=== PATIENT | male | born 1965 | race Native Hawaiian/Other Pacific Islander ===

== ENCOUNTER 2017-12-29 08:02 | Emergency (ER) | payer BC ==
[2017-12-29] MEDS ORDERED: ZOFRAN IV ONE (08:25)
[2017-12-29] MEDS ORDERED: NACL 0.9% 1000 ML 1,000 ML IV ONE (08:25)
--- NOTE | 2017-12-29 08:26 | Emergency Department Report ---
ED Dizziness HPI - General Chief Complaint: Dizziness Stated Complaint: DIZZINESS Time Seen by Provider: 12/29/17 08:15 Source: patient, family Mode of arrival: Ambulatory Limitations: No Limitations - History of Present Illness Initial Comments: 52-year-old male that presents emergency with complaints of dizziness, nausea vomiting, blurry vision and diaphoresis. Patient states this all started approximately 2 hour prior to coming to the hospital. Patient states symptoms have improved but are still present. Patient states he only vomited times one and hasn't vomited since. Patient denies chest pain shortness of breath. Patient denies fever chills. Patient denies abdominal pain. MD Complaint: dizziness, lightheadedness -: Sudden Timing: sudden onset Description: sense of movement, "room spinning", lightheadedness History of Same: No History of Trauma: No Severity: severe Improves With: remaining still, rest Worsens With: movement, position Associated Symptoms: diaphoresis. denies: ataxia, chest pain, confusion, cough , fever/chills, loss of appetite, malaise, rash, seizure, shortness of breath, syncope, weakness - Related Data Previous Rx's Medication Instructions Recorded Last Taken Type Ciprofloxacin HCl [Ciprofloxacin 500 mg PO Q12H #20 tab 11/25/15 Unknown Rx TAB] Ondansetron [Zofran Odt] 4 mg PO Q4H #10 tab.rapdis 11/25/15 Unknown Rx metroNIDAZOLE [Flagyl] 500 mg PO Q8HR #30 tablet 11/25/15 Unknown Rx traMADol [Ultram] 50 mg PO Q6HR PRN #20 tablet 11/25/15 Unknown Rx Ondansetron [Zofran Odt] 4 mg PO Q8HR PRN #30 tab.rapdis 12/29/17 Unknown Rx hydroCHLOROthiazide [HCTZ] 12.5 mg PO QDAY #30 capsule 12/29/17 Unknown Rx Allergies Allergy/AdvReac Type Severity Reaction Status Date / Time No Known Allergies Allergy Verified 12/29/17 08:09 ED Review of Systems ROS: Stated complaint: DIZZINESS Other details as noted in HPI Constitutional: denies: chills, fever Eyes: denies: eye pain, eye discharge, vision change ENT: denies: ear pain, throat pain Respiratory: denies: cough, shortness of breath, wheezing Cardiovascular: denies: chest pain, palpitations Endocrine: no symptoms reported Gastrointestinal: nausea, vomiting. denies: abdominal pain, diarrhea Genitourinary: denies: urgency, dysuria Musculoskeletal: denies: back pain, joint swelling, arthralgia Skin: denies: rash, lesions Neurological: denies: headache, weakness, paresthesias Psychiatric: denies: anxiety, depression Hematological/Lymphatic: denies: easy bleeding, easy bruising ED Past Medical Hx - Past Medical History Previous Medical History?: No - Surgical History Past Surgical History?: No - Family History Family history: hypertension - Social History Smoking Status: Never Smoker Substance Use Type: Alcohol - Medications Home Medications: Home Medications Medication Instructions Recorded Confirmed Last Taken Type Ciprofloxacin HCl [Ciprofloxacin 500 mg PO Q12H #20 tab 11/25/15 Unknown Rx TAB] Ondansetron [Zofran Odt] 4 mg PO Q4H #10 tab.rapdis 11/25/15 Unknown Rx metroNIDAZOLE [Flagyl] 500 mg PO Q8HR #30 tablet 11/25/15 Unknown Rx traMADol [Ultram] 50 mg PO Q6HR PRN #20 tablet 11/25/15 Unknown Rx Ondansetron [Zofran Odt] 4 mg PO Q8HR PRN #30 tab.rapdis 12/29/17 Unknown Rx hydroCHLOROthiazide [HCTZ] 12.5 mg PO QDAY #30 capsule 12/29/17 Unknown Rx ED Physical Exam - General Limitations: No Limitations General appearance: alert, in no apparent distress - Head Head exam: Present: atraumatic, normocephalic - Eye Eye exam: Present: normal appearance - ENT ENT exam: Present: mucous membranes dry - Neck Neck exam: Present: normal inspection - Respiratory Respiratory exam: Present: normal lung sounds bilaterally. Absent: respiratory distress - Cardiovascular Cardiovascular Exam: Present: regular rate, normal rhythm. Absent: systolic murmur, diastolic murmur, rubs, gallop - GI/Abdominal GI/Abdominal exam: Present: soft, normal bowel sounds. Absent: distended, tenderness, guarding, rebound - Rectal Rectal exam: Present: deferred - Extremities Exam Extremities exam: Present: normal inspection - Back Exam Back exam: Present: normal inspection - Neurological Exam Neurological exam: Present: alert, oriented X3, CN II-XII intact, normal gait, reflexes normal. Absent: motor sensory deficit - Psychiatric Psychiatric exam: Present: normal affect, normal mood - Skin Skin exam: Present: warm, dry, intact, normal color. Absent: rash ED Course Vital Signs 12/29/17 12/29/17 12/29/17 08:05 08:22 08:30 Temperature 97.7 F Pulse Rate 73 65 Respiratory 16 24 Rate Blood Pressure 185/114 169/116 Blood Pressure [Left] O2 Sat by Pulse 98 98 98 Oximetry 12/29/17 12/29/17 12/29/17 08:40 08:45 08:46 Temperature Pulse Rate 65 75 Respiratory 18 18 26 H Rate Blood Pressure 175/109 Blood Pressure 169/116 [Left] O2 Sat by Pulse 97 97 97 Oximetry 12/29/17 12/29/17 12/29/17 09:12 09:16 09:30 Temperature Pulse Rate 88 65 63 Respiratory 17 13 25 H Rate Blood Pressure 155/110 155/110 164/107 Blood Pressure [Left] O2 Sat by Pulse 99 96 97 Oximetry 12/29/17 12/29/17 12/29/17 09:46 10:00 10:16 Temperature Pulse Rate 67 68 66 Respiratory 26 H 20 19 Rate Blood Pressure 164/107 155/110 155/110 Blood Pressure [Left] O2 Sat by Pulse 96 97 96 Oximetry 12/29/17 12/29/17 12/29/17 10:30 10:35 10:45 Temperature Pulse Rate 65 64 63 Respiratory 17 14 Rate Blood Pressure 158/104 158/104 158/104 Blood Pressure [Left] O2 Sat by Pulse 97 97 Oximetry 12/29/17 11:00 Temperature Pulse Rate 64 Respiratory 16 Rate Blood Pressure 158/104 Blood Pressure [Left] O2 Sat by Pulse 96 Oximetry - Reevaluation(s) Reevaluation #1: Patient is symptom-free at this time. Patient denies dizziness and headache and nausea and vomiting. The patient is a no time before. Completely normal limit neuro exam. However at this time patient's blood pressure is extremely high. Will give patient 2.5 mg of Norvasc a monitor 12/29/17 10:24 Norvasc held due to blood pressure improving. Gait is normal, patient able to ambulate without problem or dizziness or blurred vision. Patient states all symptoms have resolved. Patient states he feels good and is ready to go home. Discussed CT results with patient. Patient found to have sinusitis on CT however patient has no sinus tenderness or facial pain. Patient instructed to take Flonase OTC and follow-up with primary care 12/29/17 10:58 ED Medical Decision Making - Lab Data Result diagrams: 12/29/17 08:30 12/29/17 08:30 - EKG Data -: EKG Interpreted by Me EKG shows normal: sinus rhythm, axis, intervals, QRS complexes, ST-T waves Rate: normal - Radiology Data Radiology results: report reviewed CT head without contrast: Dizzy. Axial images obtained. These cerebral anatomy appears unremarkable. No focal or generalized abnormality. No evidence of hemorrhage. No extracerebral collection. The visualized bony structures are normal. A small degree of mucoperiosteal thickening identified in the left maxillary sinus. Impression: 1. Normal intracranial scan. 2. Minimal mucoperiosteal thickening of the left maxillary sinus. Transcribed By: LESLIE Dictated By: NELLY WU MD Electronically Authenticated By: NELLY WU MD Signed Date/Time: 12/29/17 0858 - Medical Decision Making Patient 52-year-old male that presents to emergency room with complaints of nausea vomiting, dizziness and blurry vision. Patient's had a normal workup. Patient's symptoms have resolved during ER stay. Patient is stable and ready for discharge. Patient's blood pressure high, will give patient hydrochlorothiazide and have patient follow up with his primary care. Patient' s nausea and vomiting likely secondary to a upper GI virus. - Differential Diagnosis gastroenteritis. Gastritis. Hypertension. Dizziness. Critical care attestation.: If time is entered above; I have spent that time in minutes in the direct care of this critically ill patient, excluding procedure time. ED Disposition Clinical Impression: Dizziness, Gastroenteritis Hypertension Qualifiers: Hypertension type: essential hypertension Qualified Code(s): I10 - Essential ( primary) hypertension Nausea & vomiting Qualifiers: Vomiting type: unspecified Vomiting Intractability: non-intractable Qualified Code(s): R11.2 - Nausea with vomiting, unspecified Disposition: DC-01 TO HOME OR SELFCARE Is pt being admited?: No Does the pt Need Aspirin: No Condition: Stable Instructions: Gastroenteritis (ED), Acute Nausea and Vomiting (ED), Hypertension (ED) Additional Instructions: Patient follow up with primary care in 3-5 days. Patient to return to ER if condition worsens. Patient to increase water. Patient stated a Brat diet. Patient to rest. Patient to monitor blood pressure at home. Prescriptions: hydroCHLOROthiazide [HCTZ] 12.5 mg PO QDAY #30 capsule Ondansetron [Zofran Odt] 4 mg PO Q8HR PRN #30 tab.rapdis PRN Reason: Nausea And Vomiting Referrals: PRIMARY CARE, [Primary Care Provider] - 3-5 Days Time of Disposition: 11:04 - Assessment Assessment Interval: Baseline - Level of Consciousness 1a. Level of Consciousness: alert - LOC Questions 1b. LOC Questions: answers correctly - LOC Command 1c. LOC Commands: performs tasks correctly - Best Gaze 2. Best Gaze: normal - Visual 3. Visual: no visual loss - Facial Palsy 4. Facial Palsy: normal symmetrical movement - Motor Arm 5b. Motor Arm Right: no drift 5a. Motor Arm Left: no drift - Motor Leg 6a. Motor Leg Left: no drift 6b. Motor Leg Right: no drift - Limb Ataxia 7. Limb Ataxia: absent - Sensory 8. Sensory: normal - Best Language 9. Best Language: no aphasia - Dysarthria 10. Dysarthria: normal - Extinction and Inattention 11. Extinction/Inattention: no abnormality - Scoring Total Score: 0 Stroke Severity: No Stroke Symptoms
[2017-12-29 08:42] LABS: Basophils # (Auto) 0.1 K/mm3 (0.0-0.1); Basophils % (Auto) 0.8 % (0.0-1.8); Eosinophils # (Auto) 0.2 K/mm3 (0.0-0.4); Hematocrit 44.7 % (35.5-45.6); Lymphocytes # (Auto) 1.4 K/mm3 (1.2-5.4); Lymphocytes % (Auto) 14.5 % (13.4-35.0); Mean Corpuscular HGB Conc 34 % (32-34); Mean Corpuscular Hemoglobin 29 pg (28-32); Mean Corpuscular Volume 88 fl (84-94); Monocytes # (Auto) 0.6 K/mm3 (0.0-0.8); Monocytes % (Auto) 6.7 % (0.0-7.3); Platelet Count 240 K/mm3 (140-440); Red Blood Count 5.08 M/mm3 (3.65-5.03); Red Cell Distribution Width 13.2 % (13.2-15.2)
[2017-12-29 08:59] LABS: Alanine Aminotransferase 68 units/L (7-56); Albumin 4.5 g/dL (3.9-5); BUN/Creatinine Ratio 11; Blood Urea Nitrogen 11 mg/dL (9-20); Calcium 8.4 mg/dL (8.4-10.2); Creatine Kinase MB 2.6 ng/mL (0.0-4.0); Hemolysis Index 8
--- NOTE | 2017-12-29 09:16 | Cat Scan Report ---
CT head without contrast: Dizzy. Axial images obtained. These cerebral anatomy appears unremarkable. No focal or generalized abnormality. No evidence of hemorrhage. No extracerebral collection. The visualized bony structures are normal. A small degree of mucoperiosteal thickening identified in the left maxillary sinus. Impression: 1. Normal intracranial scan. 2. Minimal mucoperiosteal thickening of the left maxillary sinus.
[2017-12-29 09:38] LABS: Bilirubin,Urine NEG (Negative); Blood,Urine NEG (Negative); Color,Urine Straw (Yellow); Protein,Urine <15 mg/dL mg/dL (Negative); Urobilinogen,Urine < 2.0 mg/dL (<2.0); WBC,Urine < 1.0 /HPF (0.0-6.0)
[2017-12-29] MEDS ORDERED: NORVASC PO ONE (10:25)
[2017-12-29 10:36] VITALS: BP 158/104
[2017-12-29 11:07] LABS: Lipase 22 units/L (13-60)
== END 2017-12-29 11:18 | disposition home or self-care (01) ==
LOC: ED 08:02
DX: K52.9 Noninfective gastroenteritis and colitis, unspecified (principal); R42 Dizziness and giddiness; I10 Essential (primary) hypertension
CPT/HCPCS: 36415; 70450; 80053; 81001; 82550; 82553; 82962; 83690; 84484; 85025; 93005; 93010; 96361; 96374; 99284; J2405; J7030

== ENCOUNTER 2018-09-07 10:40 | Inpatient (IN) | payer BC ==
--- NOTE | 2018-09-07 11:03 | Emergency Department Report ---
HPI - General Chief Complaint: Neuro Symptoms/Deficit Time Seen by Provider: 09/07/18 10:49 - HPI HPI: 53-year-old male presents to the emergency department from home through triage as a code stroke. 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 She says he woke up this morning feeling some palpitations but those have since resolved. She called him from work around 9 AM saying that he did not feel well and was complaining of some numbness and tingling to the right side of his head, face and arm. No d ifficulty with speech but his says that maybe he has a slightly difficult time with full comprehension. He said that this felt similar to when he had a previous stroke. He did not take anything for his symptoms prior to arrival. PCP is Nya Paige ([facility]) and neurologist is Dr Dietrich. ED Past Medical Hx - Past Medical History Previous Medical History?: Yes Hx Hypertension: Yes Hx CVA: Yes - Surgical History Past Surgical History?: Yes Additional Surgical History: Cardiac cath - Social History Smoking Status: Never Smoker - Medications Home Medications: Home Medications Medication Instructions Recorded Confirmed Last Taken Type Clopidogrel [Plavix] 75 mg PO QDAY 09/07/18 09/07/18 Unknown History Cyclobenzaprine [Flexeril] 10 mg PO BID 09/07/18 09/07/18 Unknown History Folic Acid 0.4 mg PO Q48H 09/07/18 09/07/18 Unknown History Krill Oil 500 mg PO TID 09/07/18 09/07/18 Unknown History Magnesium Citrate 250 mg PO TID 09/07/18 09/07/18 Unknown History Metoprolol [Lopressor] 25 mg PO BID 09/07/18 09/07/18 Unknown History Niacin 500 mg PO DAILY 09/07/18 09/07/18 Unknown History ED Review of Systems ROS: Stated complaint: WEAKNESS Other details as noted in HPI Comment: All other systems reviewed and negative Constitutional: denies: chills, fever Eyes: denies: eye pain, vision change ENT: denies: ear pain, throat pain Respiratory: denies: cough, shortness of breath Cardiovascular: palpitations. denies: chest pain Gastrointestinal: denies: abdominal pain, vomiting Genitourinary: denies: dysuria, discharge Musculoskeletal: denies: back pain, arthralgia Skin: denies: rash, lesions Neurological: numbness, paresthesias Physical Exam - Physical Exam Physical Exam: GENERAL: The patient is well-developed well-nourished. HENT: Normocephalic. Atraumatic. Patient has moist mucous membranes. EYES: Extraocular motions are intact. Pupils equal reactive to light regina aterally. No nystagmus. NECK: Supple. Trachea is midline. CHEST/LUNGS: Clear to auscultation. There is no respiratory distress noted. HEART/CARDIOVASCULAR: Regular. There is no tachycardia. There is no murmur. ABDOMEN: Abdomen is soft, nontender. Patient has normal bowel sounds. There is no abdominal distention. SKIN: Skin is warm and dry. NEURO: The patient is awake, alert, and oriented. The patient is cooperative. The patient has no focal neurologic deficits. The patient has normal speech. Cranial nerves II through XII grossly intact. No pronator drift. No dysmetria. MUSCULOSKELETAL: There is no tenderness or deformity. There is no limitation range of motion. There is no evidence of acute injury. ED Course - Consultations Consultation #1: 09/07/18 11:28 The patient was seen by the telemedicine neurologist, Dr Morales, as soon as the patient returned from CT imaging of the head. He was able to elicit that the facial tingling has been going on for the past 3 days. He has an NIH stroke sca le of 0. For this reason he did not feel that there was any need for TPA or CT angiography but does suggest admission for MRI and further evaluation and monitoring. ED Medical Decision Making - Lab Data Result diagrams: 09/07/18 10:52 09/07/18 10:52 - EKG Data -: EKG Interpreted by Me EKG shows normal: sinus rhythm (PVCs), axis, intervals, QRS complexes, ST-T wav es Rate: normal - EKG Data When compared to previous EKG there are: previous EKG unavailable Interpretation: normal EKG - Radiology Data Radiology results: report reviewed, image reviewed interpreted by me: Chest x-ray does not show any acute process. There are no pleural effusions, obvious pneumonia and there is no pneumothorax. HEAD CT WITHOUT CONTRAST INDICATION: Stroke symptoms. 98N. COMPARISON: None similar. FINDINGS: Noncontrast head CT demonstrates symmetric ventricles and sulci without acute or recent infarct, hemorrhage, mass effect or midline shift. No abnormal extra-axial fluid collections. Few small, benign bilateral basal ganglia calcifications again noted. Posterior fossa structures and basilar cisterns within normal limits. Normal eye globes. Slight bilateral maxillary sinus mucosal thickening not entirely excluded with previous left lower maxillary sinus disease currently not imaged. Approximately 0.4 cm posteromedial mucosal thickening/retention cyst in the right sphenoid sinus, axial image 12, again noted. Clear remainder visualized frontal sinuses and mastoid air cells. Mild nasal septal deviation and approximately 3 mm rightward nasal septal spur again noted. Intact calvarium. Normal scalp soft tissues. Slight atherosclerotic ICA calcifications. Numerous radiopaque dental material. CONCLUSION: No acute intracranial CT abnormality with few other findings, as above. MRI is more sensitive for detection of acute infarct and may be useful for further evaluation in the setting of a focal neurologic deficit. I phoned the above results to Dr. Mclaughlin in the ER, 11 AM, 09/07/2018. Thank you for the opportunity to participate in this patient's care. Transcribed By: RS Dictated By: AMINATA BARRETT MD Electronically Authenticated By: AMINATA BARRETT MD Signed Date/Time: 09/07/18 1104 - Medical Decision Making Patient presents with the complaint of some numbness and tingling to the right side of the face, right side of the head, and right arm. It sounds more like paresthesias than true numbness. First it sounded like the symptoms started this morning but the neurologist was able to elicit that some of the symptoms started [address] of the head did not show any bleed, shift, mass, ischemia, or any other acute process. The patient was seen immediately by the stroke neurologist who agreed that the patient appears to have an NIH stroke score of 0 and does not require TPA or CT angiography at this time. The rest of his labs have been unremarkable. EKG did not show any signs of ST elevation [place] or dysrhythmia. The patient will be admitted to the hospital for further evaluation and treatment and was accepted for admission by the hospitalist, Dr. Robertson. - Differential Diagnosis CVA, TIA, dysrhythmia, electrolyte abnormalities Critical Care Time: No Critical care attestation.: If time is entered above; I have spent that time in minutes in the direct care of this critically ill patient, excluding procedure time. ED Disposition Clinical Impression: Stroke-like symptoms, Right sided numbness, Paresthesias, Palpitations Disposition: DC-09 OP ADMIT IP TO THIS HOSP Is pt being admited?: Yes Condition: Fair Time of Disposition: 13:03 - Assessment Assessment Interval: Baseline - Level of Consciousness 1a. Level of Consciousness: alert/keenly responsive - LOC Questions 1b. LOC Questions: answers both correctly - LOC Command 1c. LOC Commands: performs tasks correctly - Best Gaze 2. Best Gaze: normal - Visual 3. Visual: no visual loss - Facial Palsy 4. Facial Palsy: normal symmetrical movement - Motor Arm 5a. Motor Arm Left: no drift 5b. Motor Arm Right: no drift - Motor Leg 6a. Motor Leg Left: no drift 6b. Motor Leg Right: no drift - Limb Ataxia 7. Limb Ataxia: absent - Sensory 8. Sensory: normal - Best Language 9. Best Language: no aphasia - Dysarthria 10. Dysarthria: normal - Extinction and Inattention 11. Extinction/Inattention: no abnormality - Scoring Total Score: 0 Stroke Severity: No Stroke Symptoms
[2018-09-07 11:08] LABS: Basophils # (Auto) 0.1 K/mm3 (0.0-0.1); Eosinophils # (Auto) 0.4 K/mm3 (0.0-0.4); Eosinophils % (Auto) 5.6 % (0.0-4.3); Hematocrit 44.7 % (35.5-45.6); Hemoglobin 14.9 gm/dl (11.8-15.2); Lymphocytes # (Auto) 2.9 K/mm3 (1.2-5.4); Lymphocytes % (Auto) 39.5 % (13.4-35.0); Mean Corpuscular HGB Conc 33 % (32-34); Mean Corpuscular Volume 88 fl (84-94); Monocytes # (Auto) 0.7 K/mm3 (0.0-0.8); Monocytes % (Auto) 9.4 % (0.0-7.3); Platelet Count 239 K/mm3 (140-440); Red Cell Distribution Width 14.3 % (13.2-15.2)
--- NOTE | 2018-09-07 11:12 | Consultation ---
History of Present Illness History of present illness: [facility] Impression: Patient with right facial tingling. No deficit on exam. Rule out new left hemispheric lacune with MRI. Not a tpa candidate due to: out of window Not an ILEANA candidate due to: out of window, presentation not suggestive of LVO Differential Diagnosis: 1. Cardioembolic stroke 2. Small vessel disease/lacune 3. Thromboembolic, [id number] mechanism 4. Hypercoagulable state-related infarct 5. Transient ischemic attack 6. Thrombotic mechanism, large artery disease Comments: Door time: 1040 [facility] contacted: [phone] [facility] at bedside: 1056 NIHSS assessment time: 1100 Recommendations: ASA MRI brain wo inpatient neurology consultation Inpatient stroke evaluation as per Neurology/ Internal Medicine Discussed with ED MD --------- CC: stroke alert History of Present Illness Patient is a53 year old man with a reported history of prior stroke who presented with palpitations, neck pain and right-sided facial tingling. He states the right-sided face tingling started 3 days ago and has been getting worse. He woke this AM with palpitations and neck pain which inspired the ED visit. He denies weakness, vision changes, speech/language changes, gait change, ARCHER. Diagnostic: CT head wo - nothing acute Exam: NIHSS score: 0 Medical Decision Making: - Extensive number of diagnosis or management options are considered above. - Extensive amount of complex data reviewed. - High risk of complication and/or morbidity or mortality are associated with differential diagnostic considerations above. - There may be Uncertain outcome and increased probability of prolonged functional impairment or high probability of severe prolonged functional impairment associated with some of these differential diagnosis. Medical Data Reviewed: 1.Data reviewed include clinical labs, radiology, Medical Tests; 2.Tests results discussed w/performing or interpreting physician; 3.Obtaining/reviewing old medical records; 4.Obtaining case history from another source; 5.Independent review of image, tracing or specimen. Patient was informed the Neurology Consult would happen via telehealth (remote video) and consented to receiving care in this manner. Medications and Allergies Allergies Allergy/AdvReac Type Severity Reaction Status Date / Time No Known Allergies Allergy Verified 12/29/17 08:09 Home Medications Medication Instructions Recorded Confirmed Last Taken Type Aspirin [Aspirin BABY CHEW TAB] 81 mg PO QDAY #30 tab.chew 03/13/18 03/27/18 03/26/18 Rx 81mg amLODIPine [Norvasc] 5 mg PO DAILY 03/27/18 03/27/18 03/26/18 History 5mg - Level of Consciousness 1a. Level of Consciousness: alert/keenly responsive - LOC Questions 1b. LOC Questions: answers both correctly - LOC Command 1c. LOC Commands: performs tasks correctly - Best Gaze 2. Best Gaze: normal - Visual 3. Visual: no visual loss - Facial Palsy 4. Facial Palsy: normal symmetrical movement - Motor Arm 5a. Motor Arm Left: no drift 5b. Motor Arm Right: no drift - Motor Leg 6a. Motor Leg Left: no drift 6b. Motor Leg Right: no drift - Limb Ataxia 7. Limb Ataxia: absent - Sensory 8. Sensory: normal - Best Language 9. Best Language: no aphasia - Dysarthria 10. Dysarthria: normal - Extinction and Inattention 11. Extinction/Inattention: no abnormality - Scoring Total Score: 0 Stroke Severity: No Stroke Symptoms Results - Laboratory Findings Abnormal Lab Findings: Abnormal Labs 09/07/18 10:51 POC Glucose 123 H
[2018-09-07 11:19] LABS: INR 0.94 (0.87-1.13)
[2018-09-07 11:20] LABS: Partial Thromboplastin Time 28.6 Sec. (24.2-36.6); Thrombin Time 16.9 Sec. (15.1-19.6)
[2018-09-07 11:32] LABS: Creatine Kinase MB 1.9 ng/mL (0.0-4.0)
[2018-09-07 11:33] LABS: Alanine Aminotransferase 41 units/L (7-56); Albumin 4.5 g/dL (3.9-5); BUN/Creatinine Ratio 12; Blood Urea Nitrogen 13 mg/dL (9-20); Calcium 8.7 mg/dL (8.4-10.2); Hemolysis Index 6
[2018-09-07] MEDS ORDERED: REGLAN PO PRN (11:41)
[2018-09-07] MEDS ORDERED: PHENERGAN PR PRN (11:41)
[2018-09-07] MEDS ORDERED: PROVENTIL IH PRN (11:41)
[2018-09-07] MEDS ORDERED: TYLENOL PO PRN (11:41)
[2018-09-07] MEDS ORDERED: DULCOLAX PR PRN (11:41)
[2018-09-07] MEDS ORDERED: SODIUM CHLORIDE FLUSH SYRINGE 10 ML IV PRN (11:41)
[2018-09-07] MEDS ORDERED: ZOFRAN IV PRN (11:41)
[2018-09-07] MEDS ORDERED: MILK OF MAGNESIA PO PRN (11:41)
[2018-09-07] MEDS ORDERED: NON-FORMULARY (Folic Acid [Folic Acid] 0.4 MG) PO SCH (11:45)
--- NOTE | 2018-09-07 12:13 | History and Physical Report ---
History of Present Illness Date of admission: 09/07/18 11:41 Chief complaint: I feel weak, and my face is tingling History of present illness: 53 YO Male with Obesity, HTN, CVA presents to ED for evaluation. Pt states that he was in his usual state of health at bedtime around 2100hrs. Pt awoke from sleep this morning and experienced numbness and weakness to his right arm and face as well as slurred speech en route to work. As per patient , the patient had slurred speech during a telephone conversation. Pt transported to [facility] via private vehicle. Pt seen and evaluated in ED and found to have symptoms consistent with CVA. Pt denies fever, chills, CP, Productive cough, BRBPR, Unilateral leg swelling, Calf pain, Individual/Family history of DVT/PE/Blood Clotting Disorder, Skin rash, Vertigo, Syncope, Seizure, or recent ill contacts. Prior admission on 01/29/18 reviewed. All listed medication reconciled at time of admission. PCP is Nya Paige ([facility]) and neurologist is Dr Dietrich. Pt admitted to telemetry and initiated on CVA Protocol. Past History Past Medical History: hypertension, stroke Past Surgical History: Other (Cardiac cath) Social history: , lives with family. denies: smoking, alcohol abuse, prescription drug abuse Family history: hypertension Medications and Allergies Allergies Allergy/AdvReac Type Severity Reaction Status Date / Time No Known Allergies Allergy Verified 12/29/17 08:09 Home Medications Medication Instructions Recorded Confirmed Last Taken Type Clopidogrel [Plavix] 75 mg PO QDAY 09/07/18 09/07/18 Unknown History Cyclobenzaprine [Flexeril] 10 mg PO BID 09/07/18 09/07/18 Unknown History Folic Acid 0.4 mg PO Q48H 09/07/18 09/07/18 Unknown History Krill Oil 500 mg PO TID 09/07/18 09/07/18 Unknown History Magnesium Citrate 250 mg PO TID 09/07/18 09/07/18 Unknown History Metoprolol [Lopressor] 25 mg PO BID 09/07/18 09/07/18 Unknown History Niacin 500 mg PO DAILY 09/07/18 09/07/18 Unknown History Active Meds: Active Medications Acetaminophen (Tylenol) 650 mg PO Q4H PRN PRN Reason: Pain, Mild (1-3) Albuterol (Proventil) 2.5 mg IH Q3HRT PRN PRN Reason: Shortness Of Breath Atorvastatin Calcium (Lipitor) 40 mg PO QHS NABIL Bisacodyl (Dulcolax) 10 mg MN QDAY PRN PRN Reason: Constipation Clopidogrel Bisulfate (Plavix) 75 mg PO QDAY [facility] Cyclobenzaprine HCl (Flexeril) 10 mg PO BID [facility] Magnesium Hydroxide (Milk Of Magnesia) 30 ml PO Q4H PRN PRN Reason: Constipation Metoclopramide HCl (Reglan) 10 mg PO Q6H PRN PRN Reason: Nausea And Vomiting Miscellaneous Medication (Folic Acid [Folic Acid]) 0.4 mg PO Q48H [facility] Miscellaneous Medication (Krill Oil [Krill Oil]) 500 mg PO TID NABIL Miscellaneous Medication (Magnesium Citrate [Magnesium Citrate]) 250 mg PO TID [facility] Miscellaneous Medication (Niacin [Niacin]) 500 mg PO DAILY [facility] Ondansetron HCl (Zofran) 4 mg IV Q8H PRN PRN Reason: Nausea And Vomiting Promethazine HCl (Phenergan) 25 mg MN Q6H PRN PRN Reason: Nausea And Vomiting Sodium Chloride (Sodium Chloride Flush Syringe 10 Ml) 10 ml INJ PRN PRN PRN Reason: LINE FLUSH Review of Systems Constitutional: no weight loss, no weight gain, no fever, no chills Ears, nose, mouth and throat: no ear pain, no ear discharge, no tinnitis, no decreased hearing, no nose pain, no nasal congestion Cardiovascular: no chest pain, no orthopnea, no palpitations, no lightheadedness Respiratory: no cough, no shortness of breath Gastrointestinal: no abdominal pain, no nausea, no vomiting, no diarrhea, no constipation, no change in bowel habits Genitourinary Male: no dysuria, no flank pain, no discharge, no urinary hesitancy, no nocturia, no incontinence, no genital pain Rectal: no pain, no incontinence, no bleeding Musculoskeletal: no neck stiffness, no neck pain, no arm numbness/tingling, no low back pain, no shooting leg pain, no leg numbness/tingling Integumentary: no rash, no pruritis, no redness, no sores, no wounds, no jaundice Neurological: weakness, numbness, change in speech, no seizures, no syncope, no tremors, no ataxia Psychiatric: no anxiety, no memory loss, no change in sleep habits, no sleep disturbances, no insomnia, no hypersomnia, no change in appetite, no change in libido, no suicidal ideation Endocrine: no cold intolerance, no heat intolerance, no polyphagia, no excessive thirst, no polydipsia, no polyuria, no nocturia, no excessive sweating Hematologic/Lymphatic: no easy bruising, no easy bleeding Allergic/Immunologic: no urticaria, no allergic rhinitis, no wheezing Exam - Constitutional Vitals: Temp Pulse Resp BP Pulse Ox 71 18 125/79 99 09/07/18 11:46 09/07/18 11:51 09/07/18 11:30 09/07/18 11:51 General appearance: Present: mild distress, obese - EENT Eyes: Present: PERRL ENT: hearing intact, clear oral mucosa - Neck Neck: Present: supple, normal ROM - Respiratory Respiratory effort: normal Respiratory: bilateral: CTA - Cardiovascular Heart Sounds: Present: S1 & S2. Absent: rub, click - Extremities Extremities: pulses symmetrical, No edema Peripheral Pulses: within normal limits - Abdominal General gastrointestinal: Present: soft, non-tender, non-distended, normal bowel sounds Male genitourinary: Present: normal - Integumentary Integumentary: Present: clear, warm, dry - Musculoskeletal Musculoskeletal: gait normal, strength equal bilaterally - Psychiatric Psychiatric: appropriate mood/affect, intact judgment & insight - Neurologic Neurologic: CNII-XII intact, moves all extremities Results - Labs CBC & Chem 7: 09/07/18 10:52 09/07/18 10:52 Labs: Abnormal lab results 09/07/18 09/07/18 09/07/18 Range/Units 10:51 10:52 10:52 RBC 5.10 H (3.65-5.03) M/mm3 Lymph % (Auto) 39.5 H (13.4-35.0) % Bartholomew % (Auto) 9.4 H (0.0-7.3) % Eos % (Auto) 5.6 H (0.0-4.3) % Glucose 115 H (75-100) mg/dL POC Glucose 123 H (70-105) Assessment and Plan - Patient Problems (1) CVA (cerebral vascular accident) Current Visit: Yes Status: Acute Qualifiers: Precerebral and cerebral artery: middle cerebral artery Laterality of affected vessel: left Plan to address problem: Admit to telemetry, CVA Protocol: CT head, neuro checks, MRI Brain, MRA Brain, Echo, Carotid doppler, Seizure precautions, aspiration precautions, Neruology consulted, antiplatelet therapy, Statin therapy, lipid panel, PT/OT/Speech Therapy. (2) HTN (hypertension) Current Visit: Yes Status: Acute Qualifiers: Hypertension type: essential hypertension Qualified Code(s): I10 - Essential (primary) hypertension Plan to address problem: Monitor bp q shift, permissive hypertension overnight, continue medical management. (3) HLD (hyperlipidemia) Current Visit: Yes Status: Acute Qualifiers: Hyperlipidemia type: mixed hyperlipidemia Qualified Code(s): E78.2 - Mixed hyperlipidemia Plan to address problem: statin therapy, balanced diet, low cholesterol diet (4) Obesity (BMI 30.0-34.9) Current Visit: Yes Status: Acute Plan to address problem: Balanced diet, increased physical activity at discharge. (5) DVT prophylaxis Current Visit: Yes Status: Acute Plan to address problem: SCD to BLE while in bed, prophylactic lovenox
--- NOTE | 2018-09-07 12:20 | XRay Report ---
CHEST ONE VIEW INDICATION: CVA. COMPARISON: 03/13/2018. FINDINGS: Portable, single, frontal chest radiograph again demonstrates normal cardiomediastinal silhouette. Slightly prominent lung markings inferiorly. Otherwise unremarkable lungs. No CHF. EKG leads. Intact bones. CONCLUSION: No acute disease in the chest. Thank you for the opportunity to participate in this patient's care.
[2018-09-07] MEDS ORDERED: MAGNESIUM CITRATE 250 MG PO SCH (14:00)
[2018-09-07] MEDS ORDERED: KRILL OIL 500 MG PO SCH (14:00)
--- NOTE | 2018-09-07 14:25 | Magnetic Resonance Report ---
MRI BRAIN WITHOUT CONTRAST: 09/07/18 11:41:00 CLINICAL: Stroke. TECHNIQUE: Axial diffusion, T1, T2, gradient echo T2*, coronal and axial FLAIR and sagittal T1 sequences on a 1.5 Becky magnet. FINDINGS: Normal ventricles and sulci. No restricted diffusion. A few tiny nonspecific bilateral frontal lobe white matter focal hyperintensities on FLAIR and T2. No other abnormal signal. No mass or mass effect. No hemorrhage. No chronic microbleeds on the gradient echo sequence. No edema or extra-axial collection. Normal pituitary and optic chiasm. The brainstem and cerebellum are normal. Intact vascular flow voids. A mucous retention cyst in the floor of the left maxillary sinus. The sinuses are otherwise clear. The orbits, and soft tissues are normal. Normal calvarium and skull base. IMPRESSION: No evidence of acute/subacute infarct or hemorrhage. A few tiny bilateral nonspecific frontal lobe white matter focal hyperintensities on FLAIR and T2.
--- NOTE | 2018-09-07 14:26 | Magnetic Resonance Report ---
MRA HEAD WITHOUT CONTRAST: 09/07/18 11:41:00 CLINICAL: Stroke. TECHNIQUE: Axial 3-D [id number] MR angiography of the [place] with review of axial source images. FINDINGS: Intact [place] with no aneurysm, stenosis or occlusion. Symmetric blood flow in the anterior, middle and posterior cerebral arteries. Normal basilar and vertebral arteries. The right vertebral artery is dominant. IMPRESSION: Normal study.
--- NOTE | 2018-09-07 16:48 | Vascular Lab Report ---
PROCEDURE: VL CAROTID DUPLEX BILAT TECHNIQUE: Duplex Doppler ultrasound of the common, internal and external carotid arteries and the v ertebral arteries was performed bilaterally. Britt scale imaging, velocity spectral waveform analysis, and color flow Doppler were employed. HISTORY: stroke COMPARISONS: None . Note: Measurement of carotid stenosis is based on flow velocity values that correlate with the [place] Symptomatic Carotid Endarterectomy Trial (NASCET) based stenosis criteria using the internal carotid artery diameter as the denominator for stenosis calculation. FINDINGS: RIGHT carotid artery: Velocities: ICA PSV: 56 cm/sec ICA End diastolic: 8 cm/sec CCA PSV: 63 cm/sec IC/CC ratio: 0.89 Plaque/color flow: Minimal heterogeneous smooth plaquing visualized without significant visible sten osis. . RIGHT vertebral artery: Antegrade systolic and diastolic flow LEFT carotid artery: Velocities: ICA PSV: 56 cm/sec ICA End diastolic: 26 cm/sec CCA PSV: 75 cm/sec IC/CC ratio: 0.75 Plaque/color flow: Minimal heterogeneous smooth plaque is visualized without significant visible jen nosis. . LEFT vertebral artery: Antegrade systolic and diastolic flow IMPRESSION: Antegrade flow seen in both vertebral arteries. Minimal smooth heterogeneous plaquing visualized in both carotid bulbs without significant visible st enosis. Degree of stenosis 1-30%. This document is electronically signed by Kenyon Waterman MD., Sep 07 2018 04:46:44 PM ET
[2018-09-07] MEDS: FLEXERIL PO SCH (21:25)
[2018-09-07] MEDS: LOVENOX SUB-Q SCH ×2 (21:25→21:30)
[2018-09-08 04:50] LABS: Bacteria,Urine 1+ /HPF (Negative); Bilirubin,Urine NEG (Negative); Blood,Urine SM (Negative); Color,Urine Yellow (Yellow); Mucus,Urine 2+ /HPF; Protein,Urine <15 mg/dL mg/dL (Negative); Urobilinogen,Urine < 2.0 mg/dL (<2.0)
[2018-09-08] MEDS: FLEXERIL PO SCH (09:35)
[2018-09-08] MEDS ORDERED: NIASPAN ER PO SCH (10:00)
[2018-09-08] MEDS ORDERED: PLAVIX PO SCH (10:00)
[2018-09-08] MEDS ORDERED: NIACIN 500 MG PO SCH (10:00)
--- NOTE | 2018-09-08 11:18 | XRay Report ---
PROCEDURE: XR SPINE CERVICAL 2-3V TECHNIQUE: AP, lateral, swimmer's and open mouth odontoid views of the cervical spine. HISTORY: radiculopathy COMPARISONS: None. FINDINGS: The cervical spine was visualized through T1. Normal alignment. No cervical spine fracture. The disc spaces are maintained. The prevertebral soft tissues are normal. The odontoid is normal in position between the lateral masses of C1. Bilateral cervical ribs are seen. IMPRESSION: Bilateral cervical ribs. No acute abnormality of the cervical spine. This document is electronically signed by Angela Lee., Sep 08 2018 11:16:22 AM ET
[2018-09-08 11:50] VITALS: BP 129/86
--- NOTE | 2018-09-08 13:58 | Discharge Summary ---
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 Patient transported to [facility] via private vehicle. Pt seen and evaluated in ED and found to have symptoms consistent with possible CVA. His PCP is Nya Paige ([facility]) and neurologist is Dr Dietrich. Patient admitted to telemetry and initiated on CVA Protocol. His stroke workup was negative and symptom resolved by the time he presented to ER. Neurology was consulted but he wanted to f/u with his neurologist Dr. Dietrich outpt. Patient was discharged home with antiplatelet and Statin therapy in stable condition and with outpt followup. Discharge diagnosis: (1) TIA Admitted to telemetry with CVA Protocol: s/p CT head, neuro checks, MRI Brain, MRA Brain, Echo, Carotid doppler, Neruology consulted, given antiplatelet therapy, Statin therapy, obtained lipid panel, consulted PT/OT/Speech Therapy. (2) HTN (hypertension) Monitored bp q shift, permissive hypertension allowed overnight following admission, continued medical management. (3) HLD (hyperlipidemia) placed on statin therapy, balanced diet, low cholesterol diet (4) Obesity (BMI 30.0-34.9) Balanced diet, increased physical activity at discharge. (5) DVT prophylaxis SCD to BLE while in bed, prophylactic lovenox Disposition: DC-01 TO HOME OR SELFCARE Time spent for discharge: 34 minutes Core Measure Documentation - Palliative Care Palliative Care/ Comfort Measures: Not Applicable - Core Measures Any of the following diagnoses?: stroke - Stroke Discharge Requirements Statin for LDL = or >70 mg/dl on DC: Yes Anticoag for atrial fib/atrial flutter: Not Applicable Antithrombotic for ischemic stroke: Yes Exam - Constitutional Vitals: Temp Pulse Resp BP Pulse Ox 98.1 F 89 18 129/86 97 09/08/18 11:48 09/08/18 11:48 09/08/18 11:48 09/08/18 11:48 09/08/18 11:48 General appearance: Present: no acute distress, obese - EENT Eyes: Present: PERRL ENT: hearing intact, clear oral mucosa - Neck Neck: Present: supple, normal ROM - Respiratory Respiratory effort: normal Respiratory: bilateral: CTA - Cardiovascular Heart Sounds: Present: S1 & S2. Absent: rub, click - Extremities Extremities: pulses symmetrical, No edema Peripheral Pulses: within normal limits - Abdominal General gastrointestinal: Present: soft, non-tender, non-distended, normal bowel sounds - Integumentary Integumentary: Present: clear, warm, dry - Musculoskeletal Musculoskeletal: gait normal, strength equal bilaterally - Psychiatric Psychiatric: appropriate mood/affect, intact judgment & insight - Neurologic Neurologic: CNII-XII intact, moves all extremities Plan Activity: advance as tolerated Weight Bearing Status: Weight Bear as Tolerated Diet: low fat, low salt Follow up with: PRIMARY CARE, [Primary Care Provider] - 3-5 Days JOURDAN DIETRICH MD [Staff Physician] - 7 Days Prescriptions: AtorvaSTATin [Lipitor] 40 mg PO QHS #30 tab
--- NOTE | 2018-09-09 02:29 | Consultation ---
HISTORY OF PRESENT ILLNESS: This 53-year-old male is admitted to [facility] because of symptoms suggestive of stroke. The patient had presented to the Emergency Room, was evaluated initially on 09/07/2018. He presented with a code stroke. 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 I have seen the patient previously myself and had him on Plavix therapy. When he was admitted, CT scan did not show any acute bleed. I did go over his MRI scan of the brain personally which showed small punctate white matter changes noted frontally, which were extremely minimal, no acute stroke. The white matter changes more are present over the right than the left hemisphere, very suggestive of microvascular ischemic changes in the white matter. There is also one very prominently in the maurisio as well, on the right side, which is quite apparent on imaging for sequences. Examination shows at this point, his neurological symptoms have cleared. I reviewed over his labs, his eosinophil count is 5.1, hematocrit is stable. His blood sugars are 123, 115. I checked his urinalysis, it is also unremarkable, does not show white cells. Coagulation studies are negative. Remainder of the chemistries are unremarkable. IMPRESSION: This patient probably has microvascular ischemic changes. I will continue the Plavix. I did review his echo, which is negative. I will speak with his . JOB# [id number] SELVIN/JAREN
[2018-09-09] MEDS ORDERED: FOLVITE PO SCH (10:00)
== END 2018-09-08 17:10 | disposition home or self-care (01) | DRG 69 ==
LOC: ED 10:40 → 4A 11:41
PROVIDERS: ADMIT Internal Medicine; ATTEND Internal Medicine
DX: G45.9 Transient cerebral ischemic attack, unspecified (principal); Z68.45 Body mass index [BMI] 70 or greater, adult; I10 Essential (primary) hypertension; E66.9 Obesity, unspecified; E78.2 Mixed hyperlipidemia; R00.2 Palpitations; R20.2 Paresthesia of skin; Z82.49 Family history of ischemic heart disease and other diseases of the circulatory system; Z79.899 Other long term (current) drug therapy; Z79.82 Long term (current) use of aspirin
CPT/HCPCS: 36415; 70450; 70544; 70551; 71045; 72040; 80053; 81001; 82550; 82553; 82962; 83880; 84443; 84484; 85025; 85379; 85610; 85670; 85730; 86850; 86900; 86901; 93005; 93010; 93306; 93880; G0378; A9270-GY; J1650

== ENCOUNTER 2018-10-12 07:37 | Outpatient (CLI) | payer BC ==
--- NOTE | 2018-10-12 08:48 | Magnetic Resonance Report ---
MR CERVICAL SPINE WITHOUT CONTRAST HISTORY: Cervical radiculitis. TECHNIQUE: Axial T2 and T2 gradient. Sagittal T1, T2 and STIR. COMPARISON: None. FINDINGS: The cervical spinal cord is normal size and signal intensity throughout. No abnormal intramedullary signal is detected. Normal height and alignment of the cervical vertebral bodies. Normal bone marrow signal. The intervertebral disc spaces are normal height. The facet joints are in appropriate relationship. No significant joint pathology or hypertrophic changes. The paraspinal soft tissues are within normal limits. C2-3: Within normal limits. C3-4: Within normal limits. C4-5: Within normal limits. C5-6: There is a small midline to left paracentral annular tear and small disc protrusion. There is no obvious mass effect on nerve roots. Mild left neural foraminal narrowing is suspected and estimated at 25-50%. C6-7: Within normal limits. C7-T1: Within normal limits. IMPRESSION: Small midline to left paracentral annular tear and associated disc protrusion at C5-6. Please see above.
== END 2018-10-12 07:38 | disposition home or self-care (01) ==
LOC: MRI 07:37
PROVIDERS: ATTEND Internal Medicine
DX: M50.222 Other cervical disc displacement at C5-C6 level (principal); I10 Essential (primary) hypertension; E78.5 Hyperlipidemia, unspecified; E66.9 Obesity, unspecified
CPT/HCPCS: 72141

== ENCOUNTER 2019-02-07 07:07 | Outpatient (CLI) | payer BC ==
[2019-02-07 07:36] LABS: Hematocrit 42.9 % (35.5-45.6); Hemoglobin 14.3 gm/dl (11.8-15.2); Mean Corpuscular HGB Conc 33 % (32-34); Mean Corpuscular Volume 89 fl (84-94); Platelet Count 198 K/mm3 (140-440); Red Blood Count 4.81 M/mm3 (3.65-5.03); Red Cell Distribution Width 13.4 % (13.2-15.2)
[2019-02-07 07:57] LABS: Alanine Aminotransferase 50 units/L (7-56); Albumin 4.2 g/dL (3.9-5); BUN/Creatinine Ratio 18; Blood Urea Nitrogen 18 mg/dL (9-20); Calcium 8.3 mg/dL (8.4-10.2); Chol/HDL Ratio 2.78 %; HDL Cholesterol 47 mg/dL (40-59); Hemolysis Index 2; LDL Cholesterol,Direct 79 mg/dL (50-130)
--- NOTE | 2019-02-07 08:55 | Cat Scan Report ---
CT ABDOMEN AND PELVIS WITHOUT CONTRAST HISTORY: 599.72 MICROSCOPIC HEMATURIA for one month. COMPARISON: No relevant comparison TECHNIQUE: Axial CT images were obtained through the abdomen and pelvis without IV contrast. Sagittal and coronal reformatted images. All CT scans at this location are performed using CT dose reduction for ALARA by means of automated exposure control. FINDINGS: CT ABDOMEN: Lung Bases: Clear. Liver: No significant abnormality. Biliary: No significant abnormality. Spleen: No significant abnormality. Unenlarged. Pancreas: No significant abnormality. Adrenals: No significant abnormality. Kidneys: Both kidneys are normal size, contour and position. No evidence for cystic disease or renal mass on noncontrast CT. Punctate bilateral renal calyceal stones are identified. There are approximat conchita 4-5 stones scattered throughout both kidneys measuring 1-2 mm in diameter. No hydronephrosis. The ureters are normal course and caliber. The bladder is partially empty but unremarkable. Lymphatics: No lymphadenopathy. Vasculature: No significant abnormality. Bowel/Peritoneum: No significant abnormality. No free air. No free fluid. CT PELVIS: : No significant abnormality. Osseous Structures: The bony structures are intact. Left L5 hemitransitional vertebra is noted with p seudarthrosis involving the left superior sacral ala. No fracture or suspicious bony lesion. Moderate degenerative disc disease at 5 S1. Additional Findings: A 6.7 x 4.1 cm fat density lesion is noted in the left lateral pelvic wall consi stent with a lipoma. IMPRESSION: Punctate bilateral renal calyceal stones are identified as described. Lipoma. Bony findings as described above. Signer Name: Be Tyler Jr, MD Signed: 02/07/2019 8:50 AM Workstation Name: [id number]
== END 2019-02-07 07:08 | disposition home or self-care (01) ==
LOC: CT 07:07
PROVIDERS: ATTEND Internal Medicine
DX: R31.29 Other microscopic hematuria (principal); N20.0 Calculus of kidney; D17.9 Benign lipomatous neoplasm, unspecified
CPT/HCPCS: 36415; 74176; 80053; 80061; 84153; 84443; 85027

== ENCOUNTER 2019-09-06 09:49 | Outpatient (CLI) | payer BC ==
[2019-09-06 10:21] LABS: Basophils # (Auto) 0.1 K/mm3 (0.0-0.1); Basophils % (Auto) 1.3 % (0.0-1.8); Eosinophils # (Auto) 0.3 K/mm3 (0.0-0.4); Hematocrit 47.8 % (35.5-45.6); Hemoglobin 15.9 gm/dl (11.8-15.2); Lymphocytes % (Auto) 33.6 % (13.4-35.0); Mean Corpuscular HGB Conc 33 % (32-34); Mean Corpuscular Volume 89 fl (84-94); Monocytes # (Auto) 0.6 K/mm3 (0.0-0.8); Monocytes % (Auto) 10.3 % (0.0-7.3); Platelet Count 227 K/mm3 (140-440); Red Blood Count 5.37 M/mm3 (3.65-5.03); Red Cell Distribution Width 13.9 % (13.2-15.2)
[2019-09-06 10:45] LABS: Alanine Aminotransferase 63 units/L (7-56); Albumin 4.9 g/dL (3.9-5); BUN/Creatinine Ratio 15; Blood Urea Nitrogen 17 mg/dL (9-20); Calcium 9.4 mg/dL (8.4-10.2); Hemolysis Index 4; LDL Cholesterol,Direct 115 mg/dL (50-130)
[2019-09-06 11:19] LABS: Chol/HDL Ratio 3.05 %; HDL Cholesterol 59 mg/dL (40-59)
== END 2019-09-06 09:50 | disposition home or self-care (01) ==
LOC: LAB 09:49
PROVIDERS: ATTEND Internal Medicine
DX: E78.2 Mixed hyperlipidemia (principal)
CPT/HCPCS: 36415; 80053; 80061; 83516; 84443; 85025

== ENCOUNTER 2020-02-21 10:07 | Outpatient (CLI) | payer BC ==
[2020-02-21 11:02] LABS: Alanine Aminotransferase 40 units/L (7-56); Albumin 4.7 g/dL (3.9-5); BUN/Creatinine Ratio 14; Blood Urea Nitrogen 14 mg/dL (9-20); Calcium 9.2 mg/dL (8.4-10.2); Chol/HDL Ratio 3.05 %; HDL Cholesterol 58 mg/dL (40-59); Hemolysis Index 5; LDL Cholesterol,Direct 117 mg/dL (50-130)
== END 2020-02-21 10:08 | disposition home or self-care (01) ==
LOC: LAB 10:07
PROVIDERS: ATTEND Internal Medicine
DX: Z12.5 Encounter for screening for malignant neoplasm of prostate (principal); I10 Essential (primary) hypertension; E78.2 Mixed hyperlipidemia
CPT/HCPCS: 36415; 80053; 80061; 83516; 84153

== ENCOUNTER 2020-09-25 10:22 | Outpatient (CLI) | payer BC ==
[2020-09-25 11:06] LABS: Basophils # (Auto) 0.1 K/mm3 (0.0-0.1); Basophils % (Auto) 1.5 % (0.0-1.8); Eosinophils # (Auto) 0.4 K/mm3 (0.0-0.4); Eosinophils % (Auto) 5.7 % (0.0-4.3); Hemoglobin 14.8 gm/dl (11.8-15.2); Lymphocytes # (Auto) 2.4 K/mm3 (1.2-5.4); Lymphocytes % (Auto) 37.9 % (13.4-35.0); Mean Corpuscular HGB Conc 34 % (32-34); Mean Corpuscular Volume 90 fl (84-94); Monocytes # (Auto) 0.8 K/mm3 (0.0-0.8); Monocytes % (Auto) 13.1 % (0.0-7.3); Platelet Count 240 K/mm3 (140-440); Red Cell Distribution Width 13.3 % (13.2-15.2)
[2020-09-25 11:20] LABS: Alanine Aminotransferase 50 units/L (7-56); Albumin 4.5 g/dL (3.9-5); BUN/Creatinine Ratio 12; Blood Urea Nitrogen 12 mg/dL (9-20); Calcium 8.6 mg/dL (8.4-10.2); Chol/HDL Ratio 3.54 %; HDL Cholesterol 44 mg/dL (40-59); Hemolysis Index 6; LDL Cholesterol,Direct 102 mg/dL (50-130)
== END 2020-09-25 10:23 | disposition home or self-care (01) ==
LOC: LAB 10:22
PROVIDERS: ATTEND Internal Medicine
DX: Z01.812 Encounter for preprocedural laboratory examination (principal); I10 Essential (primary) hypertension; E78.2 Mixed hyperlipidemia
CPT/HCPCS: 36415; 80053; 80061; 85025

== ENCOUNTER 2021-01-18 08:32 | Emergency (ER) | payer BC ==
--- NOTE | 2021-01-18 08:54 | Emergency Department Report ---
HPI - General Chief Complaint: Head Injury Time Seen by Provider: 01/18/21 08:44 - HPI HPI: 55-year-old male presents to the emergency department with complaint of a headache after hitting his head on a large lamp last night. There was no loss of consciousness. About 5 hours later the patient began hearing abnormal sounds in his left ear. He describes it as sounding like he is hearing a roaring ocean, and sometimes he hears ringing in his ear. He also describes it as feeling as if it is clogged or congested. He did not take anything for symptoms prior to presentation. Currently his headache is about 5 out of 10 in intensity. No known aggravating or alleviating factors. He denies any fever, vision change, slurred speech, numbness or paresthesias, vertigo. He has a history of hypertension and has a history of CVA without residual deficits. ED Past Medical Hx - Past Medical History Previous Medical History?: Yes Hx Hypertension: Yes Hx CVA: Yes - Surgical History Past Surgical History?: Yes Additional Surgical History: Cardiac cath - Social History Smoking Status: Never Smoker Substance Use Type: None - Medications Home Medications: Home Medications Medication Instructions Recorded Confirmed Last Taken Type Clopidogrel [Plavix] 75 mg PO QDAY 09/07/18 09/07/18 Unknown History Cyclobenzaprine [Flexeril 10 MG 10 mg PO BID 09/07/18 09/07/18 Unknown History TAB] Folic Acid 0.4 mg PO Q48H 09/07/18 09/07/18 Unknown History Krill Oil 500 mg PO TID 09/07/18 09/07/18 Unknown History Magnesium Citrate 250 mg PO TID 09/07/18 09/07/18 Unknown History Metoprolol [Lopressor TAB] 25 mg PO BID 09/07/18 09/07/18 Unknown History Niacin 500 mg PO DAILY 09/07/18 09/07/18 Unknown History AtorvaSTATin [Lipitor] 40 mg PO QHS #30 tab 09/08/18 Unknown Rx ED Review of Systems ROS: Stated complaint: EARS RINGING Other details as noted in HPI Comment: All other systems reviewed and negative Constitutional: denies: chills, fever Eyes: denies: eye pain, vision change ENT: other (Hearing changes in the left ear). denies: throat pain Respiratory: denies: cough, shortness of breath Cardiovascular: denies: chest pain, palpitations Gastrointestinal: denies: abdominal pain, vomiting Genitourinary: denies: dysuria, discharge Musculoskeletal: denies: back pain, arthralgia Skin: denies: rash, lesions Neurological: headache. denies: weakness, numbness, paresthesias Physical Exam - Physical Exam Vital Signs: Vital Signs 01/18/21 08:37 Temperature 98.4 F Pulse Rate 62 Respiratory 16 Rate Blood Pressure 165/94 O2 Sat by Pulse 97 Oximetry Physical Exam: GENERAL: The patient is well-developed well-nourished. HENT: Normocephalic. Patient has moist mucous membranes. Normal appearing bilateral external ear canals and tympanic membranes. EYES: Extraocular motions are intact. Pupils equal reactive to light bilaterally. No nystagmus. NECK: Supple. Trachea is midline. CHEST/LUNGS: Clear to auscultation. There is no respiratory distress noted. HEART/CARDIOVASCULAR: Regular. There is no tachycardia. There is no murmur. ABDOMEN: Abdomen is soft, nontender. Patient has normal bowel sounds. SKIN: Skin is warm and dry. NEURO: The patient is awake, alert, and oriented. The patient is cooperative. The patient has no focal neurologic deficits. Normal speech. Cranial nerves II through XII grossly intact. No facial administered.. No pronator drift or dysmetria. MUSCULOSKELETAL: There is no tenderness or deformity. There is no limitation range of motion. ED Course Vital Signs 01/18/21 08:37 Temperature 98.4 F Pulse Rate 62 Respiratory 16 Rate Blood Pressure 165/94 O2 Sat by Pulse 97 Oximetry ED Medical Decision Making - Lab Data Result diagrams: 01/18/21 09:20 01/18/21 09:20 Lab Results 01/18/21 01/18/21 Range/Units 09:20 09:20 WBC 6.6 (4.5-11.0) K/mm3 RBC 4.96 (3.65-5.03) M/mm3 Hgb 14.9 (11.8-15.2) gm/dl Hct 44.8 (35.5-45.6) % MCV 90 (84-94) fl MCH 30 (28-32) pg MCHC 33 (32-34) % RDW 13.7 (13.2-15.2) % Plt Count 226 (140-440) K/mm3 Lymph % (Auto) 30.8 (13.4-35.0) % [place] % (Auto) 8.7 H (0.0-7.3) % Eos % (Auto) 4.0 (0.0-4.3) % Baso % (Auto) 1.2 (0.0-1.8) % Lymph # (Auto) 2.0 (1.2-5.4) K/mm3 [place] # (Auto) 0.6 (0.0-0.8) K/mm3 Eos # (Auto) 0.3 (0.0-0.4) K/mm3 Baso # (Auto) 0.1 (0.0-0.1) K/mm3 Seg Neutrophils % 55.3 (40.0-70.0) % Seg Neutrophils # 3.7 (1.8-7.7) K/mm3 Sodium 140 (137-145) mmol/L Potassium 4.3 (3.6-5.0) mmol/L Chloride 104.3 (98-107) mmol/L Carbon Dioxide 29 (22-30) mmol/L Anion Gap 11 mmol/L BUN 15 (9-20) mg/dL Creatinine 0.9 (0.8-1.3) mg/dL Estimated GFR > 60 ml/min BUN/Creatinine Ratio 17 % Glucose 127 H (75-100) mg/dL Calcium 9.1 (8.4-10.2) mg/dL - Radiology Data Radiology results: report reviewed CT head/brain wo con INDICATION: Head trauma follow by tinnitus, Hx of CVA, plavix. TECHNIQUE: Routine CT head. All CT scans at this location are performed using CT dose reduction for ALARA by means of automated exposure control. COM PARISON: None. FINDINGS: Intracranial: Britt-white matter differentiation is maintained. No intracranial hemorrhage. No extra axial collection. No hydrocephalus. No herniation. Sinuses: Because retention cyst in the left maxillary sinus with mild mucosal thickening. Mastoid air cells all well-aerated . Paranasal sinuses and mastoid air cells are essentially clear. Orbits: Globes are intact. Calvarium: No acute fracture. IMPRESSION: 1. No acute intracranial abnormality. - Medical Decision Making This patient presents to the emergency department with a headache and some abnormal left-sided hearing after hitting his head on a lamp last night. On examination he does not have any focal, motor or sensory deficits and his cranial nerves are intact. The left external ear canal and tympanic membrane appear normal. CT scan of the head without contrast does not show any fracture, hemorrhage, large vessel occlusion, or any other acute process. Currently the patient has an NIH stroke scale of 0. Labs have been unremarkable including CBC and metabolic panel. Vital signs reassuring including being afebrile. The patient will be discharged home to follow-up outpatient with primary care and has been given outpatient referrals for otolaryngology. He will return to the emergency department with any worsening of his symptoms or with any acute distress. Critical Care Time: No Critical care attestation.: If time is entered above; I have spent that time in minutes in the direct care of this critically ill patient, excluding procedure time. ED Disposition Clinical Impression: Change in hearing of left ear Minor head injury without loss of consciousness Qualifiers: Encounter type: initial encounter Qualified Code(s): S09.90XA - Unspecified injury of head, initial encounter Hypertension Qualifiers: Hypertension type: primary hypertension Qualified Code(s): I10 - Essential (primary) hypertension Disposition: 01 HOME / SELF CARE / HOMELESS Is pt being admited?: No Condition: Stable Instructions: Head Injury, Adult, Hypertension, Adult, Hypertension (ED) Additional Instructions: Please follow-up with your primary care physician in the next few days. I have given you a referral for multiple local ENT (Ear, Nose, Throat) physicians, to follow-up regarding your left ear hearing changes. Please take all medications as prescribed. Try to stay away from foods that are high in salt and caffeinated products. Keep a blood pressure log. Return to the emergency department with any worsening of your symptoms, new or concerning symptoms not addressed during this current emergency department visit, or with any acute distress. Referrals: TIARA HOWARD MD [Primary Care Provider] - 2-3 Days NICOLETTE RONQUILLO MD [Staff Physician] - 2-3 Days NÉSTOR CHÁVEZ MD [Staff Physician] - 2-3 Days VIC HYMAN MD [Referring] - 2-3 Days Time of Disposition: 10:49 - Assessment Assessment Interval: Baseline - Level of Consciousness 1a. Level of Consciousness: alert/keenly responsive - LOC Questions 1b. LOC Questions: answers both correctly - LOC Command 1c. LOC Commands: performs tasks correctly - Best Gaze 2. Best Gaze: normal - Visual 3. Visual: no visual loss - Facial Palsy 4. Facial Palsy: normal symmetrical movement - Motor Arm 5a. Motor Arm Left: no drift 5b. Motor Arm Right: no drift - Motor Leg 6a. Motor Leg Left: no drift 6b. Motor Leg Right: no drift - Limb Ataxia 7. Limb Ataxia: absent - Sensory 8. Sensory: normal - Best Language 9. Best Language: no aphasia - Dysarthria 10. Dysarthria: normal - Extinction and Inattention 11. Extinction/Inattention: no abnormality - Scoring Total Score: 0 Stroke Severity: No Stroke Symptoms
[2021-01-18 10:09] LABS: BUN/Creatinine Ratio 17; Blood Urea Nitrogen 15 mg/dL (9-20); Calcium 9.1 mg/dL (8.4-10.2); Hemolysis Index 22
--- NOTE | 2021-01-18 10:09 | Cat Scan Report ---
CT head/brain wo con INDICATION: Head trauma follow by tinnitus, Hx of CVA, plavix. TECHNIQUE: Routine CT head. All CT scans at this location are performed using CT dose reduction for A JIL by means of automated exposure control. COMPARISON: None. FINDINGS: Intracranial: Britt-white matter differentiation is maintained. No intracranial hemorrhage. No extra a xial collection. No hydrocephalus. No herniation. Sinuses: Because retention cyst in the left maxillary sinus with mild mucosal thickening. Mastoid air cells all well-aerated. Paranasal sinuses and mastoid air cells are essentially clear. Orbits: Globes are intact. Calvarium: No acute fracture. IMPRESSION: 1. No acute intracranial abnormality. Signer Name: Aftab Lopez MD Signed: 01/18/2021 10:04 AM Workstation Name: [email or web address]
[2021-01-18 10:19] LABS: Basophils # (Auto) 0.1 K/mm3 (0.0-0.1); Basophils % (Auto) 1.2 % (0.0-1.8); Eosinophils # (Auto) 0.3 K/mm3 (0.0-0.4); Hematocrit 44.8 % (35.5-45.6); Hemoglobin 14.9 gm/dl (11.8-15.2); Lymphocytes % (Auto) 30.8 % (13.4-35.0); Mean Corpuscular HGB Conc 33 % (32-34); Mean Corpuscular Volume 90 fl (84-94); Monocytes # (Auto) 0.6 K/mm3 (0.0-0.8); Monocytes % (Auto) 8.7 % (0.0-7.3); Platelet Count 226 K/mm3 (140-440); Red Blood Count 4.96 M/mm3 (3.65-5.03); Red Cell Distribution Width 13.7 % (13.2-15.2)
[2021-01-18 10:43] VITALS: BP 154/98
== END 2021-01-18 11:22 | disposition home or self-care (01) ==
LOC: ED 08:32
DX: S09.90XA Unspecified injury of head, initial encounter (principal); H91.92 Unspecified hearing loss, left ear; I10 Essential (primary) hypertension; I63.9 Cerebral infarction, unspecified; Z98.890 Other specified postprocedural states; W20.8XXA Other cause of strike by thrown, projected or falling object, initial encounter; Y93.89 Activity, other specified; Y92.89 Other specified places as the place of occurrence of the external cause; Y99.8 Other external cause status
CPT/HCPCS: 36415; 70450; 80048; 85025; 99284

== ENCOUNTER 2021-07-23 08:37 | Outpatient (CLI) | payer BC ==
[2021-07-23 09:08] LABS: Basophils # (Auto) 0.1 K/mm3 (0.0-0.1); Basophils % (Auto) 0.9 % (0.0-1.8); Eosinophils # (Auto) 0.3 K/mm3 (0.0-0.4); Eosinophils % (Auto) 3.9 % (0.0-4.3); Hematocrit 43.5 % (35.5-45.6); Hemoglobin 14.4 gm/dl (11.8-15.2); Lymphocytes # (Auto) 2.3 K/mm3 (1.2-5.4); Lymphocytes % (Auto) 32.3 % (13.4-35.0); Mean Corpuscular HGB Conc 33 % (32-34); Mean Corpuscular Volume 90 fl (84-94); Monocytes # (Auto) 0.7 K/mm3 (0.0-0.8); Monocytes % (Auto) 9.8 % (0.0-7.3); Platelet Count 225 K/mm3 (140-440); Red Blood Count 4.82 M/mm3 (3.65-5.03); Red Cell Distribution Width 12.9 % (13.2-15.2)
[2021-07-23 09:18] LABS: Alanine Aminotransferase 38 units/L (7-56); Albumin 4.7 g/dL (3.9-5); BUN/Creatinine Ratio 16; Blood Urea Nitrogen 16 mg/dL (9-20); Calcium 8.9 mg/dL (8.4-10.2); Chol/HDL Ratio 2.94 %; HDL Cholesterol 56 mg/dL (40-59); Hemolysis Index 4; LDL Cholesterol,Direct 100 mg/dL (50-130)
== END 2021-07-23 08:38 | disposition home or self-care (01) ==
LOC: LAB 08:37
PROVIDERS: ATTEND Internal Medicine
DX: Z12.5 Encounter for screening for malignant neoplasm of prostate (principal); I10 Essential (primary) hypertension; E78.2 Mixed hyperlipidemia; R20.2 Paresthesia of skin
CPT/HCPCS: 36415; 80053; 80061; 82607; 82747; 84153; 85025

== ENCOUNTER 2021-09-02 13:12 | Inpatient (IN) | payer BC ==
[2021-09-02] MEDS ORDERED: SODIUM CHLORIDE 0.9% 1000 ML 1,000 ML IV ONE (13:40)
[2021-09-02] MEDS ORDERED: ONDANSETRON 4 MG/2 ML INJ IV ONE (13:40)
[2021-09-02] MEDS ORDERED: cloNIDine 0.2 MG TAB PO ONE (13:43)
--- NOTE | 2021-09-02 14:02 | XRay Report ---
CHEST 1 VIEW 09/02/2021 12:52 PM INDICATION / CLINICAL INFORMATION: Lightheadedness/Dizziness. COMPARISON: March 2018 FINDINGS: SUPPORT DEVICES: None. HEART / MEDIASTINUM: No significant abnormality. LUNGS / PLEURA: No significant pulmonary or pleural abnormality. No pneumothorax. ADDITIONAL FINDINGS: No significant additional findings. IMPRESSION: 1. No acute findings. Signer Name: Rajan Garcia MD Signed: 09/02/2021 1:58 PM Workstation Name: [id number]
[2021-09-02 15:06] LABS: Basophils # (Auto) 0.1 K/mm3 (0.0-0.1); Basophils % (Auto) 1.3 % (0.0-1.8); Eosinophils # (Auto) 0.2 K/mm3 (0.0-0.4); Eosinophils % (Auto) 2.9 % (0.0-4.3); Hematocrit 42.4 % (35.5-45.6); Hemoglobin 14.2 gm/dl (11.8-15.2); Lymphocytes # (Auto) 1.6 K/mm3 (1.2-5.4); Lymphocytes % (Auto) 21.4 % (13.4-35.0); Mean Corpuscular HGB Conc 34 % (32-34); Mean Corpuscular Volume 89 fl (84-94); Monocytes # (Auto) 0.7 K/mm3 (0.0-0.8); Monocytes % (Auto) 9.7 % (0.0-7.3); Platelet Count 223 K/mm3 (140-440); Red Blood Count 4.77 M/mm3 (3.65-5.03); Red Cell Distribution Width 13.8 % (13.2-15.2)
[2021-09-02 15:11] LABS: Creatine Kinase MB 2.3 ng/mL (0.0-4.0)
[2021-09-02 15:13] LABS: Alanine Aminotransferase 39 units/L (7-56); Albumin 4.5 g/dL (3.9-5); BUN/Creatinine Ratio 14; Blood Urea Nitrogen 13 mg/dL (9-20); Calcium 9.2 mg/dL (8.4-10.2); Hemolysis Index 4
--- NOTE | 2021-09-02 15:25 | Cat Scan Report ---
CT BRAIN: 09/02/2021 INDICATION / CLINICAL INFORMATION: Lightheadedness/Dizziness. COMPARISON: 01/18/2021 FINDINGS: BRAIN/INTRACRANIAL STRUCTURES: Unenhanced CT images of the brain demonstrate no evidence of acute abn ormality. Ventricles and sulci are normal in size and shape. There is no evidence of ischemic injury, hemorrhage, or mass. There are no abnormal extra-axial fluid collections. EXTRACRANIAL STRUCTURES: Unremarkable. IMPRESSION: Negative unenhanced CT of the brain. No change when compared to 01/18/[address] scans at this location are performed using dose reduction to ALARA by means of automated expos ure control. Signer Name: Ayaan Nelson MD Signed: 09/02/2021 3:20 PM Workstation Name: [id number]
[2021-09-02 15:42] LABS: Bilirubin,Urine NEG (Negative); Blood,Urine SM (Negative); Color,Urine Straw (Yellow); Protein,Urine <15 mg/dL mg/dL (Negative); Urobilinogen,Urine < 2.0 mg/dL (<2.0)
[2021-09-02 16:06] LABS: INR 0.97 (0.87-1.13)
[2021-09-02] MEDS ORDERED: ASPIRIN 81 MG TAB CHEW PO ONE (16:52)
--- NOTE | 2021-09-02 16:52 | Emergency Department Report ---
ED Dizziness HPI - General Chief Complaint: Dizziness Stated Complaint: DIZZINESS Time Seen by Provider: 09/02/21 13:39 Source: patient Mode of arrival: Ambulatory Limitations: No Limitations - Related Data Home Medications Medication Instructions Recorded Confirmed Last Taken Clopidogrel [Plavix] 75 mg PO QDAY 09/07/18 09/02/21 09/02/21 Folic Acid 0.4 mg PO Q48H 09/07/18 09/02/21 09/02/21 Metoprolol [Lopressor TAB] 25 mg PO BID 09/07/18 09/02/21 09/02/21 Previous Rx's Medication Instructions Recorded Last Taken Type AtorvaSTATin [Lipitor] 40 mg PO QHS #30 tab 09/08/18 09/01/21 Rx Allergies Allergy/AdvReac Type Severity Reaction Status Date / Time No Known Allergies Allergy Verified 12/29/17 08:09 ED Review of Systems ROS: Stated complaint: DIZZINESS Other details as noted in HPI ED Past Medical Hx - Past Medical History Hx Hypertension: Yes Hx CVA: Yes Additional medical history: vertigo - Surgical History Additional Surgical History: Cardiac cath - Social History Smoking Status: Never Smoker Substance Use Type: Alcohol - Medications Home Medications: Home Medications Medication Instructions Recorded Confirmed Last Taken Type Clopidogrel [Plavix] 75 mg PO QDAY 09/07/18 09/02/21 09/02/21 History Folic Acid 0.4 mg PO Q48H 09/07/18 09/02/21 09/02/21 History Metoprolol [Lopressor TAB] 25 mg PO BID 09/07/18 09/02/21 09/02/21 History AtorvaSTATin [Lipitor] 40 mg PO QHS #30 tab 09/08/18 09/02/21 09/01/21 Rx ED Physical Exam - General Limitations: No Limitations ED Course Vital Signs 09/02/21 09/02/21 09/02/21 13:16 13:20 13:55 Temperature 97.6 F Pulse Rate 63 56 L Respiratory 20 15 Rate Blood Pressure 135/99 Blood Pressure 152/99 [Left] O2 Sat by Pulse 97 99 97 Oximetry 09/02/21 09/02/21 09/02/21 16:20 17:18 17:46 Temperature Pulse Rate 61 61 56 L Respiratory 17 14 17 Rate Blood Pressure Blood Pressure 130/91 133/85 124/76 [Left] O2 Sat by Pulse 100 100 95 Oximetry 09/02/21 09/02/21 09/02/21 18:00 19:41 19:45 Temperature Pulse Rate 56 L 52 L 55 L Respiratory 17 13 22 Rate Blood Pressure 144/98 Blood Pressure 133/85 [Left] O2 Sat by Pulse 97 97 97 Oximetry 09/02/21 09/02/21 09/02/21 20:01 20:15 20:31 Temperature Pulse Rate 68 Respiratory 18 Rate Blood Pressure 145/94 145/94 152/101 Blood Pressure [Left] O2 Sat by Pulse 96 97 96 Oximetry 09/02/21 09/02/21 09/02/21 20:45 21:01 21:15 Temperature Pulse Rate Respiratory Rate Blood Pressure 152/101 136/83 136/83 Blood Pressure [Left] O2 Sat by Pulse 97 97 97 Oximetry 09/02/21 09/02/21 09/02/21 21:31 21:45 22:11 Temperature Pulse Rate 61 75 Respiratory 15 23 Rate Blood Pressure 138/89 138/89 138/89 Blood Pressure [Left] O2 Sat by Pulse 95 98 Oximetry 09/02/21 09/02/21 09/02/21 22:15 22:31 22:45 Temperature Pulse Rate 62 58 L 57 L Respiratory 17 24 22 Rate Blood Pressure 138/89 138/89 138/89 Blood Pressure [Left] O2 Sat by Pulse 97 97 98 Oximetry 09/02/21 09/02/21 09/02/21 23:01 23:15 23:31 Temperature Pulse Rate 57 L 59 L 61 Respiratory 20 23 19 Rate Blood Pressure 138/89 138/89 138/89 Blood Pressure [Left] O2 Sat by Pulse 97 95 95 Oximetry 09/02/21 09/02/21 23:45 23:59 Temperature Pulse Rate 58 L 62 Respiratory 20 22 Rate Blood Pressure 138/89 138/89 Blood Pressure [Left] O2 Sat by Pulse 95 95 Oximetry ED Medical Decision Making - Lab Data Result diagrams: 09/02/21 Unknown 09/02/21 Unknown Critical care attestation.: If time is entered above; I have spent that time in minutes in the direct care of this critically ill patient, excluding procedure time. ED Disposition Clinical Impression: TIA (transient ischemic attack) Disposition: 09 ADMITTED INPATIENT Is pt being admited?: Yes Does the pt Need Aspirin: Yes Condition: Fair
--- NOTE | 2021-09-02 17:44 | History and Physical Report ---
History of Present Illness Chief complaint: I get dizzy and I could not talk History of present illness: 56 YO Male with Obesity, HTN, CVA, Metabolic Syndrome presents to ED for evaluation. Pt reports "I get dizzy, my vision got blurry and then I could not talk". Patient states that he was in his usual state of health and approximate 2 hours prior to presentation he experienced a sudden onset of the aforementioned s ymptoms. Patient transported to [facility] via private vehicle for further care and evaluation of the aforementioned symptoms. The patient was seen and evaluated in the emergency department. Lab and image studies reviewed. Patient found to have clinical symptoms consistent with a focal neurologic deficit. A code stroke was called. Patient initiated on ACS protocol and admitted to telemetry due to increased risk of worsening symptoms. Patient denies fever, chills, chest pain, palpitation, productive cough, skin rash or recent contact, known exposure to COVID-19. Prior admission on 09/07/2018 reviewed. All medication listed at time of admission has been reconciled. Advanced care planning cond ucted in ED. Past History Past Medical History: hypertension, stroke, other (See HPI) Past Surgical History: Other (Cardiac cath) Social history: . denies: smoking, alcohol abuse, prescription drug abus e Family history: diabetes, hypertension Medications and Allergies Allergies Allergy/AdvReac Type Severity Reaction Status Date / Time No Known Allergies Allergy Verified 12/29/17 08:09 Home Medications Medication Instructions Recorded Confirmed Last Taken Type Clopidogrel [Plavix] 75 mg PO QDAY 09/07/18 09/02/21 09/02/21 History Folic Acid 0.4 mg PO Q48H 09/07/18 09/02/21 09/02/21 History Metoprolol [Lopressor TAB] 25 mg PO BID 09/07/18 09/02/21 09/02/21 History AtorvaSTATin [Lipitor] 40 mg PO QHS #30 tab 09/08/18 09/02/21 09/01/21 Rx Review of Systems Constitutional: no weight loss, no weight gain, no fever, no chills Ears, nose, mouth and throat: no ear pain, no tinnitis, no decreased hearing, no nose pain Cardiovascular: no chest pain, no orthopnea, no rapid/irregular heart beat, no syncope, no lightheadedness Respiratory: no cough, no cough with sputum Gastrointestinal: no abdominal pain, no nausea, no diarrhea, no constipation, no change in bowel habits Genitourinary Male: no hematuria, no flank pain, no discharge, no urinary frequency, no urinary hesitancy, no nocturia Rectal: no pain, no incontinence, no bleeding Musculoskeletal: no neck stiffness, no neck pain, no shooting arm pain, no low back pain Integumentary: no rash, no pruritis, no redness, no sores, no wounds, no boils Neurological: no head injury, no paralysis, no parathesias, no numbness, no tingling, no syncope, no ataxia Psychiatric: no anxiety, no change in sleep habits, no sleep disturbances, no hypersomnia, no change in appetite, no change in libido, no suicidal ideation Endocrine: no cold intolerance, no heat intolerance, no excessive thirst, no polydipsia, no nocturia, no excessive sweating Hematologic/Lymphatic: no easy bruising, no easy bleeding Allergic/Immunologic: no urticaria, no allergic rhinitis, no wheezing Exam - Constitutional Vitals: Temp Pulse Resp BP Pulse Ox 97.6 F 61 14 133/85 100 09/02/21 13:16 09/02/21 17:18 09/02/21 17:18 09/02/21 17:18 09/02/21 17:18 General appearance: Present: mild distress, obese - EENT Eyes: Present: PERRL ENT: hearing intact, clear oral mucosa - Neck Neck: Present: supple, normal ROM - Respiratory Respiratory effort: normal Respiratory: bilateral: CTA - Cardiovascular Heart Sounds: Present: S1 & S2. Absent: rub, click - Extremities Extremities: pulses symmetrical, No edema Peripheral Pulses: within normal limits - Abdominal General gastrointestinal: Present: soft, non-tender, non-distended, normal bowel sounds Male genitourinary: Present: normal - Integumentary Integumentary: Present: clear, warm, dry - Musculoskeletal Musculoskeletal: gait normal, strength equal bilaterally - Psychiatric Psychiatric: appropriate mood/affect, intact judgment & insight - Neurologic Neurologic: CNII-XII intact, moves all extremities HEART Score - HEART Score Troponin: Troponin T < 0.010 ng/mL (0.00-0.029) 09/02/21 Unknown Results - Labs CBC & Chem 7: 09/02/21 Unknown 09/02/21 Unknown Labs: Abnormal lab results 09/02/21 09/02/21 09/02/21 Range/Units 13:19 Unknown Unknown [place] % (Auto) 9.7 H (0.0-7.3) % Glucose 120 H (75-100) mg/dL POC Glucose 139 H (70-105) mg/dL Assessment and Plan - Patient Problems (1) CVA (cerebral vascular accident) Current Visit: No Status: Acute Qualifiers: Precerebral and cerebral artery: middle cerebral artery Laterality of affected vessel: left Plan to address problem: CVA protocol: Therapy, CT head, neuro check, seizure precaution, aspiration precautions, physical therapy consult, outpatient therapy consulted, speech therapy consulted, echocardiogram, carotid Doppler, telemetry neurology consulted. (2) Metabolic syndrome Current Visit: Yes Status: Acute Plan to address problem: Disease education conducted, balanced diet, low-cholesterol diet, risk factor reduction. (3) HLD (hyperlipidemia) Current Visit: No Status: Acute Qualifiers: Hyperlipidemia type: mixed hyperlipidemia Qualified Code(s): E78.2 - Mixed hyperlipidemia Plan to address problem: Low-cholesterol diet, statin therapy, supportive care. (4) HTN (hypertension) Current Visit: No Status: Acute Qualifiers: Hypertension type: primary hypertension Qualified Code(s): I10 - Essential (primary) hypertension Plan to address problem: Monitor blood pressure every shift, continue medical management. (5) Obesity (BMI 30.0-34.9) Current Visit: No Status: Acute Plan to address problem: Balanced diet, increase physical activity at discharge. (6) DVT prophylaxis Current Visit: Yes Status: Acute Plan to address problem: SCD to bilateral lower extremities while in bed (7) Advance care planning Current Visit: Yes Status: Acute Plan to address problem: Disease education conducted, care plan discussed, diagnoses discussed, prognosis discussed, patient is full code. Patient acknowledges understanding and agreement with care plan, +30 minutes. (8) Preventative health care Current Visit: Yes Status: Acute Plan to address problem: Patient counseled regarding meal planning, balanced dietary intake, low- cholesterol diet, increase physical activity discharge.
[2021-09-02] MEDS ORDERED: ALBUTEROL 2.5 MG/3 ML NEBU IH PRN (17:46)
[2021-09-02] MEDS ORDERED: MAGNESIUM HYDROXIDE (MOM) ORAL LIQD UDC PO PRN (17:46)
[2021-09-02] MEDS ORDERED: ONDANSETRON 4 MG/2 ML INJ IV PRN (17:46)
[2021-09-02] MEDS ORDERED: PROMETHAZINE 25 MG RECT SUPP PR PRN (17:46)
[2021-09-02] MEDS ORDERED: METOCLOPRAMIDE 10 MG TAB PO PRN (17:46)
[2021-09-02] MEDS ORDERED: ACETAMINOPHEN 325 MG TAB PO PRN (17:46)
[2021-09-02] MEDS ORDERED: oxyCODONE /ACETAMINOPHEN 5-325MG TAB PO PRN (17:46)
[2021-09-02] MEDS ORDERED: HYDROmorphone 1 MG/1 ML INJ IV PRN (17:46)
[2021-09-03] MEDS: CLOPIDOGREL 75 MG TAB PO SCH (12:36)
[2021-09-03] MEDS: ASPIRIN 325 MG TAB PO SCH (12:36)
--- NOTE | 2021-09-03 15:10 | Vascular Lab Report ---
DUPLEX DOPPLER ULTRASOUND CAROTID, BILATERAL INDICATION / CLINICAL INFORMATION: stroke. COMPARISON: Carotid Doppler 09/07/2018. FINDINGS: RIGHT CAROTID: Minimal atherosclerotic plaque. - PLAQUE ESTIMATE (%): < 50% - CCA velocity: 84 cm/sec. - ICA peak systolic velocity: 57 cm/sec. - ICA/CCA PSV Ratio: Less than 2. Right Vertebral Artery: Antegrade flow. LEFT CAROTID: Minimal atherosclerotic plaque. - PLAQUE ESTIMATE (%): < 50% - CCA velocity: 88 cm/sec. - ICA peak systolic velocity: 64 cm/sec. - ICA/CCA PSV Ratio: Less than 2. Left Vertebral Artery: Antegrade flow. IMPRESSION: 1. Right Internal Carotid Artery: Less than 50% diameter stenosis. 2. Left Internal Carotid Artery: Less than 50% diameter stenosis. Velocity criteria are extrapolated from diameter data as defined by the Society of Radiologists in Ul trasound Consensus Conference, Radiology 2003; 229;340-346. NO STENOSIS (NORMAL) - Plaque = none; ICA PSV < 125 cm/sec; ICA/CCA PSV Ratio < 2.0 <50% STENOSIS - Plaque < 50%; ICA PSV < 125 cm/sec; ICA/CCA PSV Ratio < 2.0 50-69% STENOSIS - Plaque > 50%; ICA PSV = 125-230 cm/sec; ICA/CCA PSV Ratio = 2.0-4.0 >70% BUT <100% STENOSIS - Plaque > 50%; ICA PSV > 230 cm/sec; ICA/CCA PSV Ratio > 4.0 NEAR OCCLUSION - Plaque = visible lumen; ICA PSV = high/low/none; ICA/CCA PSV Ratio = variable TOTAL OCCLUSION - Plaque = no lumen; ICA PSV = none; ICA/CCA PSV Ratio = N/A Scribed by: María Vann RDMS, RVT, RMSKS Scribed: 09/03/2021 12:57 PM I have reviewed the images, agree with this report, and edited this report as needed. Signer Name: Rajan Garcia MD Signed: 09/03/2021 3:06 PM Workstation Name: [email or web address]
--- NOTE | 2021-09-03 17:13 | Electrocardiograph Report ---
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
--- NOTE | 2021-09-03 17:21 | Magnetic Resonance Report ---
MR brain wo/w con INDICATION / CLINICAL INFORMATION: Recurrent episodes of dizziness w blurred vision. TECHNIQUE: Multiplanar, multisequence MR images of the brain were obtained. COMPARISON: 09/02/2021 FINDINGS: INTRACRANIAL: No restricted diffusion. No hemorrhage. Ventricular caliber is normal. No extra-axial c ollection. No mass. No herniation. Major intracranial vascular flow voids are preserved. Small quant ity of T2 white matter hyperintensities which are nonspecific but most commonly is related to mild se quela of chronic microvascular disease. Migrainous angiopathy and other etiologies can have a similar appearance. ORBITS: No significant abnormality of visualized orbits. SINUSES / MASTOIDS: Mucous retention cyst in the left maxillary sinus. Mild mucosal thickening in the maxillary sinuses and ethmoid air cells. Mastoid air cells are clear. ADDITIONAL FINDINGS: None. IMPRESSION: 1. No significant intracranial abnormality. 2. Mild frontal white matter disease which most likely represents mild sequela of chronic microvascul ar disease. Signer Name: Aftab Lopez MD Signed: 09/03/2021 5:16 PM Workstation Name: [id number]
--- NOTE | 2021-09-03 19:42 | Progress Note ---
Assessment and Plan Assessment and plan: 56 YO Male with Obesity, HTN, CVA in 2018, Metabolic Syndrome had cardiac evaluation for chest pain. In 2018 and underwent cardiac catheterization. According to patient, diagnosed with CAD but sees cardiology Dr. Paredes and takes metoprolol, Plavix and statin. Patient presented to ED after 3 episodes of very transient dizziness with some blurred vision but notes speech disturbance occurring on the same day. A code stroke was called. Patient denies fever, chills, chest pain, palpitation, productive cough, skin rash or recent contact, known exposure to COVID-19. Assessment: History of CVA in 2018 with no residual Presents with 3 transient episodes of dizziness with vision disturbance Stroke alert called Stroke work-up negative including CT/MRI brain, carotid ultrasound Echo unremarkable except LVEF 45 to 50% and mild diastolic dysfunction. No wall motion abnormality. RV function mildly reduced but RV SP normal. On telemetry Neurology consulted and their recommendations Continue aspirin, Plavix, atorvastatin History of hypertension, stable on home meds History of dyslipidemia, continue statin Obesity/metabolic syndrome Due to prophylaxis: SCDs CODE STATUS: Full code Discussed with patient in detail. History Interval history: Patient is clinically asymptomatic. No further episodes of dizziness/blurred v ision since coming to ED. Vital signs stable. Stroke work-up so far negative. Denies headaches. Denies speech disturbance. Denies difficulty swallowing. Ambulating at baseline. Denies focal extremity weakness. Hospitalist Physical - Constitutional Vitals: Temp Pulse Resp BP Pulse Ox 98.3 F 66 20 138/89 95 09/03/21 15:20 09/03/21 15:20 09/03/21 15:20 09/03/21 15:20 09/03/21 15:20 General appearance: Present: no acute distress, obese - EENT Eyes: Present: PERRL ENT: hearing intact, clear oral mucosa - Neck Neck: Present: supple - Respiratory Respiratory effort: normal Respiratory: bilateral: CTA - Cardiovascular Rhythm: regular - Extremities Extremities: No edema - Abdominal General gastrointestinal: soft, non-tender - Integumentary Integumentary: Absent: rash - Psychiatric Psychiatric: appropriate mood/affect - Neurologic Neurologic: no focal deficits, other (Alert and oriented, normal speech, normal comprehension, no facial droop. No focal weakness in extremities. Gait stable. No tremors.) HEART Score - HEART Score Troponin: Troponin T < 0.010 ng/mL (0.00-0.029) 09/02/21 Unknown Results - Labs CBC & Chem 7: 09/02/21 Unknown 09/02/21 Unknown Labs: Laboratory Last Values WBC 7.7 K/mm3 (4.5-11.0) 09/02/21 Unknown RBC 4.77 M/mm3 (3.65-5.03) 09/02/21 Unknown Hgb 14.2 gm/dl (11.8-15.2) 09/02/21 Unknown Hct 42.4 % (35.5-45.6) 09/02/21 Unknown MCV 89 fl (84-94) 09/02/21 Unknown MCH 30 pg (28-32) 09/02/21 Unknown MCHC 34 % (32-34) 09/02/21 Unknown RDW 13.8 % (13.2-15.2) 09/02/21 Unknown Plt Count 223 K/mm3 (140-440) 09/02/21 Unknown Lymph % (Auto) 21.4 % (13.4-35.0) 09/02/21 Unknown Shannon % (Auto) 9.7 % (0.0-7.3) H 09/02/21 Unknown Eos % (Auto) 2.9 % (0.0-4.3) 09/02/21 Unknown Baso % (Auto) 1.3 % (0.0-1.8) 09/02/21 Unknown Lymph # (Auto) 1.6 K/mm3 (1.2-5.4) 09/02/21 Unknown Shannon # (Auto) 0.7 K/mm3 (0.0-0.8) 09/02/21 Unknown Eos # (Auto) 0.2 K/mm3 (0.0-0.4) 09/02/21 Unknown Baso # (Auto) 0.1 K/mm3 (0.0-0.1) 09/02/21 Unknown Seg Neutrophils % 64.7 % (40.0-70.0) 09/02/21 Unknown Seg Neutrophils # 5.0 K/mm3 (1.8-7.7) 09/02/21 Unknown PT 13.9 Sec. (12.2-14.9) 09/02/21 Unknown INR 0.97 (0.87-1.13) 09/02/21 Unknown Sodium 138 mmol/L (137-145) 09/02/21 Unknown Potassium 4.1 mmol/L (3.6-5.0) 09/02/21 Unknown Chloride 101.8 mmol/L (98-107) 09/02/21 Unknown Carbon Dioxide 24 mmol/L (22-30) 09/02/21 Unknown Anion Gap 16 mmol/L 09/02/21 Unknown BUN 13 mg/dL (9-20) 09/02/21 Unknown Creatinine 0.9 mg/dL (0.8-1.3) 09/02/21 Unknown Estimated GFR > 60 ml/min 09/02/21 Unknown BUN/Creatinine Ratio 14 % 09/02/21 Unknown Glucose 120 mg/dL (75-100) H 09/02/21 Unknown POC Glucose 139 mg/dL (70-105) H 09/02/21 13:19 Calcium 9.2 mg/dL (8.4-10.2) 09/02/21 Unknown Total Bilirubin 1.00 mg/dL (0.1-1.2) 09/02/21 Unknown AST 25 units/L (5-40) 09/02/21 Unknown ALT 39 units/L (7-56) 09/02/21 Unknown Alkaline Phosphatase 88 units/L (35-129) 09/02/21 Unknown Total Creatine Kinase 151 units/L (55-170) 09/02/21 Unknown CK-MB (CK-2) 2.3 ng/mL (0.0-4.0) 09/02/21 Unknown CK-MB (CK-2) Rel Index 1.5 (0-4) 09/02/21 Unknown Troponin T < 0.010 ng/mL (0.00-0.029) 09/02/21 Unknown Total Protein 6.6 g/dL (6.3-8.2) 09/02/21 Unknown Albumin 4.5 g/dL (3.9-5) 09/02/21 Unknown Albumin/Globulin Ratio 2.1 % 09/02/21 Unknown Urine Color Straw (Yellow) 09/02/21 Unknown Urine Turbidity Clear (Clear) 09/02/21 Unknown Urine pH 6.0 (5.0-7.0) 09/02/21 Unknown Ur Specific Bland 1.013 (1.003-1.030) 09/02/21 Unknown Urine Protein <15 mg/dl mg/dL (Negative) 09/02/21 Unknown Urine Glucose (UA) Neg mg/dL (Negative) 09/02/21 Unknown Urine Ketones Neg mg/dL (Negative) 09/02/21 Unknown Urine Blood Sm (Negative) 09/02/21 Unknown Urine Nitrite Neg (Negative) 09/02/21 Unknown Urine Bilirubin Neg (Negative) 09/02/21 Unknown Urine Urobilinogen < 2.0 mg/dL (<2.0) 09/02/21 Unknown Ur Leukocyte Esterase Neg (Negative) 09/02/21 Unknown Urine WBC (Auto) 2.0 /HPF (0.0-6.0) 09/02/21 Unknown Urine RBC (Auto) 2.0 /HPF (0.0-6.0) 09/02/21 Unknown U Epithel Cells (Auto) < 1.0 /HPF (0-13.0) 09/02/21 Unknown Vega/IV: Voiding Method Urinal Active Medications - Current Medications Current Medications: Generic Name Dose Route Start Last Admin Trade Name Freq PRN Reason Stop Dose Admin Acetaminophen 650 mg 09/02/21 17:46 Acetaminophen 325 Mg Tab PO Q4H PRN Pain, Mild (1-3) Albuterol 2.5 mg 09/02/21 17:46 Albuterol 2.5 Mg/3 Ml Nebu IH Q3HRT PRN Shortness Of Breath Aspirin 325 mg 09/03/21 10:00 09/03/21 12:36 Aspirin 325 Mg Tab PO 325 mg QDAY NABIL Administration Atorvastatin Calcium 40 mg 09/02/21 22:00 09/02/21 21:36 Atorvastatin 40 Mg Tab PO 40 mg QHS NABIL Administration Bisacodyl 10 mg 09/02/21 17:46 Bisacodyl 10 Mg Rect Supp DC QDAY PRN Constipation Clopidogrel Bisulfate 75 mg 09/03/21 10:00 09/03/21 12:36 Clopidogrel 75 Mg Tab PO 75 mg QDAY NABIL Administration Hydromorphone HCl 0.5 mg 09/02/21 17:46 Hydromorphone 1 Mg/1 Ml Inj IV Q13H PRN Pain , Severe (7-10) Magnesium Hydroxide 30 ml 09/02/21 17:46 Magnesium Hydroxide (Mom) Oral Liqd Udc PO Q4H PRN Constipation Metoclopramide HCl 10 mg 09/02/21 17:46 Metoclopramide 10 Mg Tab PO Q6H PRN Nausea And Vomiting Ondansetron HCl 4 mg 09/02/21 17:46 Ondansetron 4 Mg/2 Ml Inj IV Q8H PRN Nausea And Vomiting Oxycodone/Acetaminophen 1 tab 09/02/21 17:46 Oxycodone /Acetaminophen 5-325mg Tab PO Q8H PRN Pain, Moderate (4-6) Promethazine HCl 25 mg 09/02/21 17:46 Promethazine 25 Mg Rect Supp DC Q6H PRN Nausea And Vomiting Sodium Chloride 10 ml 09/02/21 17:46 Sodium Chloride 0.9% 10 Ml Flush Syringe IV PRN PRN LINE FLUSH
[2021-09-03] MEDS: METOPROLOL TARTRATE 25 MG TAB PO SCH (22:19)
[2021-09-04] MEDS: METOPROLOL TARTRATE 25 MG TAB PO SCH (10:26)
[2021-09-04] MEDS: ASPIRIN 325 MG TAB PO SCH (10:26)
[2021-09-04] MEDS: CLOPIDOGREL 75 MG TAB PO SCH (10:26)
--- NOTE | 2021-09-04 11:34 | Consultation ---
History of Present Illness Consult date: 09/04/21 Reason for Consult: intermittent dizziness and blurred vision History of present illness: I get dizzy and I could not talk History of present illness: 56 YO Male with Obesity, HTN, CVA, Metabolic Syndrome presents to ED for evaluation. Pt reports "I get dizzy, my vision got blurry and then I could not talk". Patient states that he was in his usual state of health and approximate 2 hours prior to presentation he experienced a sudden onset of the aforementioned symptoms. Patient transported to [facility] via private vehicle for further care and evaluation of the aforementioned symptoms. The patient was seen and evaluated in the emergency department. Lab and image studies reviewed. Patient found to have clinical symptoms consistent with a focal neurologic deficit. A code stroke was called. Patient initiated on ACS protocol and admitted to telemetry due to increased risk of worsening symptoms. Patient denies fever, chills, chest pain, palpitation, productive cough, skin rash or recent contact, known exposure to COVID-19. Prior admission on 09/07/2018 reviewed. All medication listed at time of admission has been reconciled. Advanced care planning conducted in ED. According to pt. he is dong well symptoms started with intermittent vertigo for the last few days since , denied weakness today he had no dizziness , no weakness he is with hx of CVA? 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 denies: smoking, alcohol abuse, prescription drug abuse Family history: diabetes, hypertension Medications and Allergies Allergies Allergy/AdvReac Type Severity Reaction Status Date / Time No Known Allergies Allergy Verified 12/29/17 08:09 Home Medications Medication Instructions Recorded Confirmed Last Taken Type Clopidogrel [Plavix] 75 mg PO QDAY 09/07/18 09/02/21 09/02/21 History Folic Acid 0.4 mg PO Q48H 09/07/18 09/02/21 09/02/21 History Metoprolol [Lopressor TAB] 25 mg PO BID 09/07/18 09/02/21 09/02/21 History AtorvaSTATin [Lipitor] 40 mg PO QHS #30 tab 09/08/18 09/02/21 09/01/21 Rx Review of Systems Constitutional: no weight loss, no weight gain, no fever, no chills Ears, nose, mouth and throat: no ear pain, no tinnitis, no decreased hearing, no nose pain Cardiovascular: no chest pain, no orthopnea, no rapid/irregular heart beat, no syncope, no lightheadedness Respiratory: no cough, no cough with sputum Gastrointestinal: no abdominal pain, no nausea, no diarrhea, no constipation, no change in bowel habits Genitourinary Male: no hematuria, no flank pain, no discharge, no urinary frequency, no urinary hesitancy, no nocturia Rectal: no pain, no incontinence, no bleeding Musculoskeletal: no neck stiffness, no neck pain, no shooting arm pain, no low back pain Integumentary: no rash, no pruritis, no redness, no sores, no wounds, no boils Neurological: no head injury, no paralysis, no parathesias, no numbness, no tingling, no syncope, no ataxia Psychiatric: no anxiety, no change in sleep habits, no sleep disturbances, no hypersomnia, no change in appetite, no change in libido, no suicidal ideation Endocrine: no cold intolerance, no heat intolerance, no excessive thirst, no polydipsia, no nocturia, no excessive sweating Hematologic/Lymphatic: no easy bruising, no easy bleeding Allergic/Immunologic: no urticaria, no allergic rhinitis, no wheezing Past History Past Medical History: hypertension, stroke, other (See HPI) Past Surgical History: Other (Cardiac cath) Social history: . denies: smoking, alcohol abuse, prescription drug abuse Family history: diabetes, hypertension Medications and Allergies Allergies Allergy/AdvReac Type Severity Reaction Status Date / Time No Known Allergies Allergy Verified 12/29/17 08:09 Home Medications Medication Instructions Recorded Confirmed Last Taken Type Clopidogrel [Plavix] 75 mg PO QDAY 09/07/18 09/02/21 09/02/21 History Folic Acid 0.4 mg PO Q48H 09/07/18 09/02/21 09/02/21 History Metoprolol [Lopressor TAB] 25 mg PO BID 09/07/18 09/02/21 09/02/21 History AtorvaSTATin [Lipitor] 40 mg PO QHS #30 tab 09/08/18 09/02/21 09/01/21 Rx Active Meds: Active Medications Acetaminophen (Acetaminophen 325 Mg Tab) 650 mg PO Q4H PRN PRN Reason: Pain, Mild (1-3) Albuterol (Albuterol 2.5 Mg/3 Ml Nebu) 2.5 mg IH Q3HRT PRN PRN Reason: Shortness Of Breath Aspirin (Aspirin 325 Mg Tab) 325 mg PO QDAY [facility] Last Admin: 09/04/21 10:26 Dose: 325 mg Atorvastatin Calcium (Atorvastatin 40 Mg Tab) 40 mg PO QHS [facility] Last Admin: 09/03/21 22:19 Dose: 40 mg Bisacodyl (Bisacodyl 10 Mg Rect Supp) 10 mg IN QDAY PRN PRN Reason: Constipation Clopidogrel Bisulfate (Clopidogrel 75 Mg Tab) 75 mg PO QDAY [facility] Last Admin: 09/04/21 10:26 Dose: 75 mg Hydromorphone HCl (Hydromorphone 1 Mg/1 Ml Inj) 0.5 mg IV Q13H PRN PRN Reason: Pain , Severe (7-10) Magnesium Hydroxide (Magnesium Hydroxide (Mom) Oral Liqd Udc) 30 ml PO Q4H PRN PRN Reason: Constipation Metoclopramide HCl (Metoclopramide 10 Mg Tab) 10 mg PO Q6H PRN PRN Reason: Nausea And Vomiting Metoprolol Tartrate (Metoprolol Tartrate 25 Mg Tab) 25 mg PO BID [facility] Last Admin: 09/04/21 10:26 Dose: 25 mg Ondansetron HCl (Ondansetron 4 Mg/2 Ml Inj) 4 mg IV Q8H PRN PRN Reason: Nausea And Vomiting Oxycodone/Acetaminophen (Oxycodone /Acetaminophen 5-325mg Tab) 1 tab PO Q8H PRN PRN Reason: Pain, Moderate (4-6) Promethazine HCl (Promethazine 25 Mg Rect Supp) 25 mg IN Q6H PRN PRN Reason: Nausea And Vomiting Sodium Chloride (Sodium Chloride 0.9% 10 Ml Flush Syringe) 10 ml IV PRN PRN PRN Reason: LINE FLUSH Physical Examination - Vital Signs Vital Signs: Vital Signs Temp Pulse Resp BP Pulse Ox 97.6 F 63 20 135/99 97 09/02/21 13:16 09/02/21 13:16 09/02/21 13:16 09/02/21 13:16 09/02/21 13:16 - Constitutional General appearance: comfortable - EENT EENT: Present: PERRL, mucous membranes moist - Respiratory Respiratory: Present: lungs clear, rhonchi - Cardiovascular Cardiovascular: Present: regular rate, normal S1, normal S2 Extremities: Present: no peripheral edema bilatateraly, no clubbing, cyanosis - Gastrointestinal Gastrointestinal: Present: normoactive bowel sounds - Integumentary Integumentary: Present: normal - Neurologic Cranial nerve examination: PERRL, EOMI, intact, other (no nystagmus , vertigo is not induced with head motion today . ) Detailed motor examination: grossly full strength in - Level of Consciousness 1a. Level of Consciousness: alert/keenly responsive - LOC Questions 1b. LOC Questions: answers both correctly - LOC Command 1c. LOC Commands: performs tasks correctly - Best Gaze 2. Best Gaze: normal - Visual 3. Visual: no visual loss - Facial Palsy 4. Facial Palsy: normal symmetrical movement - Motor Arm 5a. Motor Arm Left: no drift 5b. Motor Arm Right: no drift - Motor Leg 6a. Motor Leg Left: no drift 6b. Motor Leg Right: no drift - Limb Ataxia 7. Limb Ataxia: absent - Sensory 8. Sensory: normal - Best Language 9. Best Language: no aphasia - Dysarthria 10. Dysarthria: normal - Extinction and Inattention 11. Extinction/Inattention: no abnormality - Scoring Total Score: 0 Stroke Severity: No Stroke Symptoms Results - Laboratory Findings CBC and BMP: 09/02/21 Unknown 09/02/21 Unknown Abnormal Lab Findings: Abnormal Labs 09/02/21 09/02/21 09/02/21 13:19 Unknown Unknown [place] % (Auto) 9.7 H Glucose 120 H POC Glucose 139 H Assessment and Plan Assessment and Plan 56 YO Male with Obesity, HTN, CVA, Metabolic Syndrome presents to ED for evaluation. Pt reports "I get dizzy, my vision got blurry and then I could not talk". Patient states that he was in his usual state of health and approximate 2 hours prior to presentation he experienced a sudden onset of the aforementioned symptoms. Patient transported to [facility] via private vehicle for further care and evaluation of the aforementioned symptoms. - Patient Problems # Complaint of dizziness for the last 3 days intermittent each last few minutes ,no clear trigger no associated symptoms -R/O CVA -NIH#0 -CT brain is unremarkable -CTA is pending -US carotid is <50% -Echo with LVH,Ef#45-50% -Pt. is on plavix 75 mg for the last 2 years ? hx of CVA -A1C#6 -LDL is pending # Bradycardia -related to medication -possibly contribute to dizzy feeling !!! # HLD (hyperlipidemia) -Low-cholesterol diet, statin therapy, supportive care. # HTN (hypertension) -Monitor blood pressure every shift, continue medical management. # Obesity (BMI 30.0-34.9) -Balanced diet, increase physical activity at discharge. # DVT prophylaxis -SCD to bilateral lower extremities while in bed PLAN 1- CTA brain 2- Mantain ASA 325 mg and Plavix 75 Mg for 3 months then ASA alone 325 mg. 2- Review LDL 3- Lipitor 40 mg for now 4- Follow up with Neurology will follow as needed
--- NOTE | 2021-09-04 12:45 | Cat Scan Report ---
CTA HEAD WITH CONTRAST HISTORY: Dizziness; blurred vision COMPARISON: None. TECHNIQUE: Routine non-contrast CT Head, CTA of the head and post-contrast CT Head are performed. 3-D /MIP reformats postprocessed. All CT scans at this location are performed using CT dose reduction for ALARA by means of automated exposure control CONTRAST: 100 ml of Omnipaque 350 FINDINGS: CTA Head: Intracranial vertebral arteries: No significant abnormality. Basilar artery: No significant abnormality. Posterior cerebral arteries: No significant abnormality. Both posterior communicating arteries are co ntributing to posterior cerebral arteries Intracranial internal carotid arteries: No significant abnormality. Anterior cerebral arteries: No significant abnormality. Middle cerebral arteries: No significant abnormality Dural venous sinuses:Not optimally opacified. No significant abnormality. Additional findings: Incidental retention cyst in the left maxillary sinus IMPRESSION: 1. No significant abnormality. Signer Name: Anisa Pereyra MD Signed: 09/04/2021 12:41 PM Workstation Name: [id number]
--- NOTE | 2021-09-04 15:43 | Discharge Summary ---
Providers - Providers Date of Admission: 09/02/21 17:47 Attending physician: SPRING MUNOZ MD 09/02/21 17:47 Occupational Therapy Evaluate and Treat [CONS] Routine Comment: Reason For Exam: Neuro deficits Physical Therapy Evaluation and Treat [CONS] Routine Comment: Reason For Exam: Neuro deficits 09/03/21 15:18 Consult to Physician [CONS] Routine Comment: Consulting Provider: DEBORA COFFEY Physician Instructions: Consult neurologist Reason For Exam: Episodes of dizziness and blurred vision Primary care physician: TIARA HOWARD Hospitalization Condition: Stable Hospital course: 56 YO Male with Obesity, HTN, CVA in 2018, Metabolic Syndrome had cardiac evaluation for chest pain. In 2018 and underwent cardiac catheterization. According to patient, diagnosed with no CAD but sees cardiology Dr. Paredes and takes metoprolol, Plavix and statin. Patient presented to ED after 3 episodes of very transient dizziness with some blurred vision but notes no speech disturbance occurring on the same day. A code stroke was called. Patient denies fever, chills, chest pain, palpitation, productive cough, skin rash or recent contact, known exposure to COVID-19. Patient experiencing no further episodes of dizziness/blurred vision since coming to ED. Vital signs stable. Stroke work-up so far negative. Denies headaches. Denies speech disturbance. Denies difficulty swallowing. Ambulating at baseline. Denies focal extremity weakness. 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 Patient has a stable borderline bradycardia with heart rate 57-61 and this did not appear to be the cause of his symptoms. However, patient was advised to reduce the dose of metoprolol 25 mg to half a tablet twice daily. He was advised to see a neurologist in 2 weeks for follow-up. Discharge diagnosis: History of CVA in 2018 with no residual Presents with 3 transient episodes of dizziness with vision disturbance Stroke alert called Stroke work-up negative including CT/MRI brain, carotid ultrasound Echo unremarkable except LVEF 45 to 50% and mild diastolic dysfunction. No wall motion abnormality. RV function mildly reduced but RV SP normal. EKG and telemetry showed stable borderline bradycardia, rate 58-61. Neurology consulted and evaluated To continue aspirin, Plavix, atorvastatin History of hypertension, stable on home meds History of dyslipidemia, continue statin Obesity/metabolic syndrome Due to prophylaxis: SCDs CODE STATUS: Full code Discussed with patient in detail. Disposition: 01 HOME / SELF CARE / HOMELESS Final Discharge Diagnosis (Prints w/discharge instructions): 3 brief episodes of dizziness with blurred vision. Stroke work-up negative. Mild systolic dysfunction. Borderline sinus bradycardia on metoprolol, 57/61. Hypertension. Obesity. Metabolic syndrome. Dyslipidemia. History of CVA in 2018 Time spent for discharge: 35 minutes Core Measure Documentation - Palliative Care Palliative Care/ Comfort Measures: Not Applicable - Core Measures Any of the following diagnoses?: none Exam - Constitutional Vitals: Temp Pulse Resp BP Pulse Ox 98.0 F 60 18 152/98 96 09/04/21 11:33 09/04/21 11:33 09/04/21 11:33 09/04/21 11:33 09/04/21 11:33 General appearance: Present: no acute distress - EENT Eyes: Present: PERRL, EOM intact, irregular pupil ENT: clear oral mucosa - Neck Neck: Present: supple - Respiratory Respiratory effort: normal Respiratory: bilateral: CTA - Cardiovascular Rhythm: regular - Extremities Extremities: No edema - Abdominal General gastrointestinal: Present: soft, non-tender, normal bowel sounds - Integumentary Integumentary: Absent: rash - Musculoskeletal Musculoskeletal: strength equal bilaterally - Psychiatric Psychiatric: appropriate mood/affect - Neurologic Neurologic: no focal deficits, gait normal Plan Activity: advance as tolerated Diet: low fat, low salt Additional Instructions: Take aspirin 81 mg daily for 3 months as recommended by neurologist. See a neurologist in 2 weeks for follow-up. Reduce metoprolol to half a tablet twice daily. See your military personnel specialist in 2weeks. See your primary care doctor in 1 week for follow-up. Follow up with: TIARA HOWARD MD [Primary Care Provider] - 3-5 Days Prescriptions: Aspirin [Aspirin BABY CHEW TAB] 81 mg PO QDAY #100 tab.chew
[2021-09-04 16:26] VITALS: BP 137/92
== END 2021-09-04 17:37 | disposition home or self-care (01) | DRG 69 ==
LOC: ED 13:12 → 4A 17:47 → EEVIPCON 17:47 → 4A 23:19
PROVIDERS: ADMIT Internal Medicine; ATTEND Internal Medicine
DX: G45.9 Transient cerebral ischemic attack, unspecified (principal); E78.5 Hyperlipidemia, unspecified; E66.9 Obesity, unspecified; I10 Essential (primary) hypertension; E88.81 Metabolic syndrome and other insulin resistance; Z83.3 Family history of diabetes mellitus; Z82.49 Family history of ischemic heart disease and other diseases of the circulatory system; Z86.73 Personal history of transient ischemic attack (TIA), and cerebral infarction without residual deficits; Z68.34 Body mass index [BMI] 34.0-34.9, adult; I25.10 Atherosclerotic heart disease of native coronary artery without angina pectoris
CPT/HCPCS: 36415; 70450; 70496; 70553; 71045; 80053; 81001; 82550; 82553; 82962; 83036; 84484; 85025; 85610; 93005; 93306; 93880; 94640; 96361; 96374; 99285; G0378; A9575; C8929; J2405; J7030; Q9967